=== PATIENT | male | born 1940 | race Caucasian/White ===

== ENCOUNTER → 2016-05-20 | Outpatient (CLI) | payer MEDICARE ==
[~2016-05-20] MED LIST: AUGM875T PO; CART240C PO; CITA40TA4 PO; COUM6TAB PO; FURO1TAB60 PO; METF500 PO; NOVOLOGP2 SQ; PERC5TAB12 PO; POTA-163 PO; SPIR25TA PO; TOPR50TA PO; VENTAER INH
[2016-05-20 12:57] LABS: AUTOMATED NEUTROPHIL # 3.9 TH/MM3 (1.8-7.7); BASOPHIL # 0.1 TH/MM3 (0-0.2); BASOPHIL % 0.9 % (0.0-2.0); EOSINOPHIL # 0.5 TH/MM3 (0-0.4); EOSINOPHIL % 6.7 % (0.0-4.0); HEMATOCRIT 35.5 % (39.0-51.0); HEMO FLAGS DIFF FINAL; LYMPH % 23.7 % (9.0-44.0); LYMPHOCYTE # 1.6 TH/MM3 (1.0-4.8); MEAN CELL VOLUME 87.5 FL (80.0-100.0); MEAN CORPUSCULAR HEMOGLOBIN 30.1 PG (27.0-34.0); MEAN CORPUSCULAR HGB CONC 34.4 % (32.0-36.0); MONO % 11.8 % (0.0-8.0); NEUT % 56.9 % (16.0-70.0); PLATELET COUNT 227 TH/MM3 (150-450); RED BLOOD COUNT 4.05 MIL/MM3 (4.50-5.90); RED CELL DISTRIBUTION WIDTH 15.4 % (11.6-17.2); WHITE BLOOD COUNT 6.8 TH/MM3 (4.0-11.0)
[2016-05-20 13:27] LABS: ANION GAP 10 MEQ/L (5-15); AST (GOT) 19 U/L (15-37); BICARBONATE 28.2 MEQ/L (21.0-32.0); BLOOD UREA NITROGEN 19 MG/DL (7-18); CHLORIDE 103 MEQ/L (98-107); GLOMERULAR FILTRATION RATE 78 ML/MIN (>89); POTASSIUM 3.8 MEQ/L (3.5-5.1); SODIUM (NA) 141 MEQ/L (136-145)
[2016-05-20 13:35] LABS: BLOOD, URINE NEG (NEG); GLUCOSE,URINE NEG (NEG); KETONE, URINE NEG (NEG); NITRITE,URINE NEG (NEG); PH, URINE 6.5 (5.0-8.5); SQUAMOUS EPITHELIAL CELL URINE <1 /hpf (0-5); URINE COLOR LIGHT-YELLOW (YELLW/STRAW)
[2016-05-20 13:48] LABS: ALKALINE PHOSPHATASE 92 U/L (45-117); ALT (GPT) 16 U/L (12-78); GLUCOSE,FASTING 131 MG/DL (74-99); HDL CHOLESTEROL 69.8 MG/DL (40.0-60.0); LDL CHOLESTEROL 134 MG/DL (0-99); TOTAL BILIRUBIN ADULT 0.4 MG/DL (0.2-1.0)
[2016-05-20 13:56] LABS: COMMENT (UR) CULT NOT INDICATED; CULTURE IF INDICATED CULT NOT INDICATED
[2016-05-20 16:04] LABS: HEMOGLOBIN A1a 1.3 %; HEMOGLOBIN Ao 83.4 %; HEMOGLOBIN LA1C 2.2 %; HEMOGLOBIN P3 4.1 %
== END ==
LOC: PLAB 09:21
PROVIDERS: ATTEND Internal Medicine
DX: E11.9 Type 2 diabetes mellitus without complications (principal); I10 Essential (primary) hypertension; Z12.5 Encounter for screening for malignant neoplasm of prostate
CPT/HCPCS: 36415; 80053; 80061; 81001; 83036; 84443; 85025; G0103

== ENCOUNTER → 2016-06-19 | Outpatient (CLI) | payer MEDICARE | LOC: PLAB 11:21 | DX: R19.7 Diarrhea, unspecified (principal) | CPT/HCPCS: 36415; 83516 ==

== ENCOUNTER → 2016-09-23 | Outpatient (CLI) | payer MEDICARE ==
[2016-09-23 13:31] LABS: ALT (GPT) 20 U/L (12-78); ANION GAP 7 MEQ/L (5-15); AST (GOT) 23 U/L (15-37); BICARBONATE 30.6 MEQ/L (21.0-32.0); BLOOD UREA NITROGEN 16 MG/DL (7-18); CHLORIDE 103 MEQ/L (98-107); GLOMERULAR FILTRATION RATE 80 ML/MIN (>89); GLUCOSE,FASTING 112 MG/DL (74-99); POTASSIUM 4.2 MEQ/L (3.5-5.1); SODIUM (NA) 141 MEQ/L (136-145)
[2016-09-23 13:33] LABS: ALKALINE PHOSPHATASE 73 U/L (45-117); HDL CHOLESTEROL 59.6 MG/DL (40.0-60.0); LDL CHOLESTEROL 115 MG/DL (0-99); TOTAL BILIRUBIN ADULT 0.5 MG/DL (0.2-1.0)
[2016-09-23 15:54] LABS: HEMOGLOBIN A1a 0.8 %; HEMOGLOBIN A1b 1.8 %; HEMOGLOBIN Ao 83.9 %; HEMOGLOBIN LA1C 2.1 %; HEMOGLOBIN P3 5.5 %
== END ==
LOC: PLAB 10:09
PROVIDERS: ATTEND Internal Medicine
DX: E11.9 Type 2 diabetes mellitus without complications (principal)
CPT/HCPCS: 36415; 80053; 80061; 83036

== ENCOUNTER 2017-01-07 20:26 | Emergency (ER) | payer MEDICARE ==
[~2017-01-07] VITALS: Ht 188 cm; Wt 128.4 kg
[2017-01-07 20:36] VITALS: BP 115/55; PULSE 84; RESP 18; TEMP 98.4; O2SAT 93
[2017-01-07] MEDS ORDERED: MODA100T9 PO (21:05)
[2017-01-07] MEDS ORDERED: OXYC-395 PO (21:05)
--- NOTE | 2017-01-07 21:12 | PD ---
HPI Chief Complaint: Musculoskeletal Complaint Time Seen by Provider: 21:05 Travel History International Travel<30 days: No Contact w/Intl Traveler<30days: No Traveled to known affect area: No History of Present Illness HPI 76-year-old male presents emergency department for evaluation of left foot pain since 12/19. Patient denies injury. Patient reports he was seen by pipeline welder who diagnosed him with arthritis and the metatarsals he was given a steroid injection which provided pain relief and symptom improvement for several days and return. He reports he's had a negative x-ray of the foot. The area has remained painful and swollen and now appears to be slightly warm. Patient denies swelling or pain in the leg. He denies fever, chills, numbness/tingling/ weakness of the extremity. PFSH Past Medical History Hx Anticoagulant Therapy: Yes AAA: Yes (AWAITING SURGICAL OPINION) Arthritis: Yes Asthma: No Atrial Fibrillation: Yes Autoimmune Disease: No Heart Rhythm Problems: Yes (PACER, a- fib) Cancer: Yes (SKIN, 30 years ago.) Cardiovascular Problems: Yes High Cholesterol: No Chemotherapy: No Chest Pain: Yes Congestive Heart Failure: Yes COPD: Yes Cerebrovascular Accident: No Coronary Artery Disease: Yes Diabetes: Yes Diminished Hearing: Yes Endocrine: No Gastrointestinal Disorders: Yes GERD: No Genitourinary: Yes (URINARY STRICTION YEARS AGO) Headaches: Yes Hiatal Hernia: Yes (YEARS AGO) Hypertension: Yes Immune Disorder: No Implanted Vascular Access Dvce: Yes Kidney Stones: No Musculoskeletal: Yes Neurologic: No Psychiatric: No Reproductive: No Respiratory: Yes (COPD) Immunizations Current: Yes Migraines: No Radiation Therapy: No Renal Failure: No Seizures: No Sleep Apnea: Yes Thyroid Disease: No Ulcer: No Tetanus Vaccination: < 5 Years Influenza Vaccination: Yes ?: Not Past Surgical History Abdominal Surgery: Yes Appendectomy: Yes Body Medical Devices: PACEMAKER Cardiac Surgery: Yes (PACEMAKER) Cholecystectomy: Yes Ear Surgery: No Endocrine Surgery: No 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) Genitourinary Surgery: No Gynecologic Surgery: No Oral Surgery: No Pacemaker: Yes Thoracic Surgery: Yes Tonsillectomy: Yes (SINUS AND UVULECTOMY) Other Surgery: Yes (RIGHT/LEFT TRIGGER FINGER) Social History Alcohol Use: Yes (occ.) Tobacco Use: No (quit approx 1989- smoked 2 ppd for 30+ yrs) Substance Use: No Allergies-Medications (Allergen,Severity, Reaction): Coded Allergies: No Known Allergies (Unverified , 01/07/17) Reported Meds & Prescriptions Reported Meds & Active Scripts Active Ultram (Tramadol HCl) 50 Mg Tab 50 Mg PO Q6H PRN Reported Oxycodone (Oxycodone HCl) 10 Mg Tab 10 Mg PO HS PRN Modafinil 100 Mg Tab 100 Mg PO DAILY Toprol XL (Metoprolol Succinate) 50 Mg Tab 50 Mg PO HS Spironolactone 25 Mg Tab 25 Mg PO DAILY Lasix (Furosemide) 40 Mg Tab 40 Mg PO DAILY Coumadin (Warfarin) 6 Mg Tab 6 Mg PO DAILY Citalopram (Citalopram Hydrobromide) 40 Mg Tab 40 Mg PO DAILY Ventolin Hfa 18 GM Inh (Albuterol Sulfate) 90 Mcg/Act Aer 2 Puff INH Q4-6H PRN Review of Systems Except as stated in HPI: all other systems reviewed are Neg General / Constitutional: No: Fever Eyes: No: Visual changes HENT: No: Headaches Cardiovascular: No: Chest Pain or Discomfort Respiratory: No: Shortness of Breath Gastrointestinal: No: Abdominal Pain Genitourinary: No: Dysuria Physical Exam Narrative GENERAL: Well-nourished, well-developed patient. SKIN: Focused skin assessment warm/dry. HEAD: Normocephalic. EYES: No scleral icterus. No injection or drainage. NECK: Supple, trachea midline. No JVD or lymphadenopathy. CARDIOVASCULAR: Regular rate and rhythm without murmurs, gallops, or rubs. RESPIRATORY: Breath sounds equal bilaterally. No accessory muscle use. MUSCULOSKELETAL: No cyanosis, or edema. Left lower extremity: TTP and mild swelling to the dorsal/medial aspect of the left foot. 2+ distal pulses. Normal sensation. Patient is tender to light palpation of the skin. The area is slightly warm. Negative Homans sign. No posterior knee or calf tenderness. Data Data Last Documented VS Vital Signs Date Time Temp Pulse Resp B/P (MAP) Pulse Ox O2 Delivery O2 Flow Rate FiO2 01/07/17 20:36 98.4 84 18 115/55 (75) 93 Orders Orders Ketorolac Inj (Toradol Inj) (01/07/17 21:15) MDM Medical Decision Making Medical Screen Exam Complete: Yes Emergency Medical Condition: Yes Differential Diagnosis Gout, arthritis, midfoot sprain, clinically unlikely DVT Narrative Course 68-year-old male presents emergency department for evaluation of left foot pain and swelling since 12/19. Patient was seen by podiatry who diagnosed him with arthritis within the metatarsals. He was given an injection of steroids with into the foot which he reports provided symptom improvement and relief for several days. He reports the symptoms returned. He had a negative x-ray. He denies fever or chills. On exam he has notable tenderness and mild swelling to the dorsal aspect and medial aspect of the left foot. The area does not appear to be cellulitic. The extremity is slightly warmer than the right. This does appear to be an arthritic possibly gouty arthritis. The patient is currently on Coumadin and has been instructed not to take NSAIDs. He was offered a short dose of steroids for which she declined stating he's had episodes of hyperglycemia with steroid use in the past. Patient has follow-up appointment on Thursday with podiatry. Patient will be given a shot of Toradol and instructed to follow-up with his PCP and podiatry. Diagnosis Primary Impression: Arthritis of foot, left Referrals: [facility] Additional Instructions: Ice and elevate the extremity. Take [id number] Tylenol extra strength as needed for pain. Keep your appointment with podiatry on Thursday. Return to emergency department if he developed new or worsening symptoms Scripts Tramadol (Ultram) 50 Mg Tab 50 MG PO Q6H Y for PAIN, #10 TAB 0 Refills Prov: Jh Lujan MD 01/07/17 Disposition: 01 DISCHARGE HOME Condition: Stable Desiree Retana Jan 07, 2017 21:12
[2017-01-07] MEDS ORDERED: KETOROLAC TROMETHAMINE 60 MG/2 ML (IM) VIAL IM ONE (21:15)
[2017-01-07] MEDS ORDERED: ULTR50TA5 PO ×2 (21:27→21:29)
== END 2017-01-07 21:46 | disposition home or self-care (01) ==
LOC: PHEFT 20:26
DX: M19.072 Primary osteoarthritis, left ankle and foot (principal); E11.9 Type 2 diabetes mellitus without complications; I11.0 Hypertensive heart disease with heart failure; I50.9 Heart failure, unspecified; I25.10 Atherosclerotic heart disease of native coronary artery without angina pectoris; I48.91 Unspecified atrial fibrillation; I71.4 Abdominal aortic aneurysm, without rupture; J44.9 Chronic obstructive pulmonary disease, unspecified; Z95.0 Presence of cardiac pacemaker
CPT/HCPCS: 96372; 99284; J1885

== ENCOUNTER → 2017-01-12 | Outpatient (CLI) | payer MEDICARE ==
[~2017-01-12] MED LIST changes: -AUGM875T PO; +CART120C PO; -CART240C PO; +LACTTAB8 PO; +LEVA500T20 PO; -METF500 PO; +MODA100T9 PO; -NOVOLOGP2 SQ; +OXYC-395 PO; +OXYGEN NAS.CANULA; -PERC5TAB12 PO; -POTA-163 PO; +PRED5PAK PO; +ULTR50TA5 PO; +WARF-23 PO; +WARF4TAB52 PO; +guaiFEN-COD 200-20 MG/10ML LIQ PO
== END ==
LOC: PLAB 11:25
PROVIDERS: ATTEND Podiatrist Foot & Ankle Surgery
DX: B35.1 Tinea unguium (principal); M25.572 Pain in left ankle and joints of left foot; Z79.01 Long term (current) use of anticoagulants
CPT/HCPCS: 36415; 84550

== ENCOUNTER → 2017-01-14 | Outpatient (CLI) | payer MEDICARE ==
[2017-01-14 13:10] LABS: AUTOMATED NEUTROPHIL # 4.2 TH/MM3 (1.8-7.7); BASOPHIL # 0.2 TH/MM3 (0-0.2); BASOPHIL % 2.8 % (0.0-2.0); EOSINOPHIL # 0.6 TH/MM3 (0-0.4); HEMO FLAGS DIFF FINAL; LYMPH % 23.4 % (9.0-44.0); LYMPHOCYTE # 1.8 TH/MM3 (1.0-4.8); MEAN CELL VOLUME 93.1 FL (80.0-100.0); MEAN CORPUSCULAR HEMOGLOBIN 30.9 PG (27.0-34.0); MEAN CORPUSCULAR HGB CONC 33.2 % (32.0-36.0); MONO % 10.2 % (0.0-8.0); NEUT % 55.6 % (16.0-70.0); PLATELET COUNT 211 TH/MM3 (150-450); RED BLOOD COUNT 4.08 MIL/MM3 (4.50-5.90); RED CELL DISTRIBUTION WIDTH 14.5 % (11.6-17.2); WHITE BLOOD COUNT 7.5 TH/MM3 (4.0-11.0)
[2017-01-14 13:20] LABS: ANION GAP 7 MEQ/L (5-15); BICARBONATE 28.9 MEQ/L (21.0-32.0); BLOOD UREA NITROGEN 23 MG/DL (7-18); CHLORIDE 104 MEQ/L (98-107); GLOMERULAR FILTRATION RATE 65 ML/MIN (>89); GLUCOSE,FASTING 124 MG/DL (74-99); POTASSIUM 4.1 MEQ/L (3.5-5.1); SODIUM (NA) 140 MEQ/L (136-145)
[2017-01-14 13:31] LABS: ALKALINE PHOSPHATASE 82 U/L (45-117); ALT (GPT) 19 U/L (12-78); AST (GOT) 17 U/L (15-37); HDL CHOLESTEROL 61.6 MG/DL (40.0-60.0); LDL CHOLESTEROL 97 MG/DL (0-99); TOTAL BILIRUBIN ADULT 0.3 MG/DL (0.2-1.0)
[2017-01-14 17:19] LABS: HEMOGLOBIN A1a 0.7 %; HEMOGLOBIN Ao 83.5 %; HEMOGLOBIN LA1C 2.2 %; HEMOGLOBIN P3 4.2 %
== END ==
LOC: PLAB 08:44
PROVIDERS: ATTEND Internal Medicine
DX: E11.9 Type 2 diabetes mellitus without complications (principal); I10 Essential (primary) hypertension; E78.00 Pure hypercholesterolemia, unspecified
CPT/HCPCS: 36415; 80053; 80061; 83036; 85025

== ENCOUNTER → 2017-02-05 | Outpatient (CLI) | payer MEDICARE | LOC: PLAB 12:24 | PROVIDERS: ATTEND Internal Medicine Interventional Cardiology | DX: R53.83 Other fatigue (principal); E66.01 Morbid (severe) obesity due to excess calories | CPT/HCPCS: 36415; 84443 ==

== ENCOUNTER 2017-02-08 14:14 | Inpatient (IN) | payer MEDICARE ==
[~2017-02-08] VITALS: Ht 185.4 cm; Wt 131.0 kg
[2017-02-08] VITALS (15 sets, daily range): BP systolic 104–167; BP diastolic 50–65; PULSE 66–88; RESP 19–36; TEMP 98.3–100.2; O2SAT 70–97
[~2017-02-08 14:14] MED LIST changes: -CART120C PO; -LACTTAB8 PO; -LEVA500T20 PO; -OXYGEN NAS.CANULA; -PRED5PAK PO; -WARF-23 PO; -WARF4TAB52 PO; -guaiFEN-COD 200-20 MG/10ML LIQ PO
[2017-02-08] MEDS ORDERED: methylPREDNISolone SOD SUCC 125 MG/2 ML VIAL IV PUSH ONE (14:30)
[2017-02-08] MEDS ORDERED: SODIUM CHLOR 0.9% 1000 ML INJ 1,000 ML IV ONE (14:30)
[2017-02-08] MEDS ORDERED: WARF-23 PO (14:40)
[2017-02-08] MEDS ORDERED: CART120C PO (14:40)
[2017-02-08] MEDS ORDERED: WARF4TAB52 PO (14:40)
[2017-02-08 14:46] LABS: AUTOMATED NEUTROPHIL # 9.1 TH/MM3 (1.8-7.7); BASOPHIL # 0.1 TH/MM3 (0-0.2); BASOPHIL % 0.5 % (0.0-2.0); EOSINOPHIL # 0.3 TH/MM3 (0-0.4); HEMATOCRIT 33.4 % (39.0-51.0); HEMO FLAGS DIFF FINAL; LYMPH % 11.6 % (9.0-44.0); LYMPHOCYTE # 1.5 TH/MM3 (1.0-4.8); MEAN CELL VOLUME 90.8 FL (80.0-100.0); MEAN CORPUSCULAR HEMOGLOBIN 30.2 PG (27.0-34.0); MEAN CORPUSCULAR HGB CONC 33.3 % (32.0-36.0); MONO % 13.6 % (0.0-8.0); NEUT % 72.3 % (16.0-70.0); PLATELET COUNT 200 TH/MM3 (150-450); RED BLOOD COUNT 3.68 MIL/MM3 (4.50-5.90); RED CELL DISTRIBUTION WIDTH 13.7 % (11.6-17.2); WHITE BLOOD COUNT 12.7 TH/MM3 (4.0-11.0)
[2017-02-08] MEDS: RESP: ALBUTEROL 2.5 MG/IPRATROPIUM 0.5 MG NEB (SCH) INH ×3 (14:46→21:37)
[2017-02-08 14:54] LABS: BLOOD GAS BASE EXCESS 0.8 mmol/L (-2-2); BLOOD GAS CARBOXYHEMOGLOBIN 3.2 % (0-4); BLOOD GAS HCO3 24 mmol/L (22-26); BLOOD GAS METHEMOGLOBIN 0.9 % (0-2); BLOOD GAS O2 HGB SATURATION 78 % (90-100); BLOOD GAS OXYGEN CONTENT 11.5 Vol % (12.0-20.0); BLOOD GAS PCO2 32 mmHG (38-42); BLOOD GAS PO2 45 mmHG (61-120); BLOOD GAS TOTAL HGB 10.4 G/DL (12.0-16.0); CRITICAL VALUE YES; DRAW SITE RT RADIAL; FIO2 21 %; TEMP CORR TO 98.6
[2017-02-08 14:55] LABS: NUMBER OF ARTERIAL PUNCTURES 1; OXYGEN DEVICE ROOM AIR; STAT YES; ULNAR PULSE PRESENT
--- NOTE | 2017-02-08 14:55 | PD ---
HPI Chief Complaint: Respiratory Distress Time Seen by Provider: 14:23 Travel History International Travel<30 days: No Contact w/Intl Traveler<30days: No Traveled to known affect area: No History of Present Illness HPI Patient is a 76-year-old male with history of CAD, AAA, A. fib, hypertension, cardiac pacemaker, CHF, COPD, sleep apnea, arthritis presents to emergency room with complaints of shortness of breath. Reports that he uses 4 L of oxygen nasal cannula at nighttime, reports that for the past 5-6 days, he has been feeling short of breath at rest as well as on exertion. Patient reports that he has been wheezing, has had a cough. Denies any fevers or chills. Patient reports that he can't seem to catch his breath. Denies any sick contacts at home. Reports that he does take coumadin as he has a pacemaker and does have history of atrial fibrillation. PFSH Past Medical History Hx Anticoagulant Therapy: Yes AAA: Yes (AWAITING SURGICAL OPINION) Arthritis: Yes Asthma: No Atrial Fibrillation: Yes Autoimmune Disease: No Heart Rhythm Problems: Yes (PACER, a- fib) Cancer: Yes (SKIN, 30 years ago.) Cardiovascular Problems: Yes High Cholesterol: No Chemotherapy: No Chest Pain: Yes Congestive Heart Failure: Yes COPD: Yes Cerebrovascular Accident: No Coronary Artery Disease: Yes Diabetes: Yes Patient Takes Glucophage: No Diminished Hearing: Yes Endocrine: No Gastrointestinal Disorders: Yes GERD: No Genitourinary: Yes (URINARY STRICTION YEARS AGO) Headaches: Yes Hiatal Hernia: Yes (YEARS AGO) Hypertension: Yes Immune Disorder: No Implanted Vascular Access Dvce: Yes Kidney Stones: No Musculoskeletal: Yes Neurologic: No Psychiatric: No Reproductive: No Respiratory: Yes (COPD) Immunizations Current: Yes Migraines: No Radiation Therapy: No Renal Failure: No Seizures: No Sleep Apnea: Yes Thyroid Disease: No Ulcer: No Tetanus Vaccination: < 5 Years Influenza Vaccination: Yes Past Surgical History Abdominal Surgery: Yes Appendectomy: Yes Body Medical Devices: PACEMAKER Cardiac Surgery: Yes (PACEMAKER) Cholecystectomy: Yes Ear Surgery: No Endocrine Surgery: No 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) Genitourinary Surgery: No Gynecologic Surgery: No Oral Surgery: No Pacemaker: Yes Thoracic Surgery: Yes Tonsillectomy: Yes (SINUS AND UVULECTOMY) Other Surgery: Yes (RIGHT/LEFT TRIGGER FINGER) Social History Alcohol Use: Yes (occ.) Tobacco Use: No (quit approx 1989- smoked 2 ppd for 30+ yrs) Substance Use: No Allergies-Medications (Allergen,Severity, Reaction): Coded Allergies: No Known Allergies (Unverified , 02/08/17) Reported Meds & Prescriptions Reported Meds & Active Scripts Active Reported Warfarin 5 Mg Tab 5 Mg PO DAILY Cartia Xt (Diltiazem ER 24 HR) 120 Mg Caper 240 Mg PO DAILY Warfarin 1 Mg Tab 1 Mg PO DAILY Oxycodone (Oxycodone HCl) 10 Mg Tab 10 Mg PO HS PRN Modafinil 100 Mg Tab 100 Mg PO DAILY Toprol XL (Metoprolol Succinate) 50 Mg Tab 50 Mg PO HS Spironolactone 25 Mg Tab 25 Mg PO DAILY Lasix (Furosemide) 40 Mg Tab 40 Mg PO DAILY Citalopram (Citalopram Hydrobromide) 40 Mg Tab 40 Mg PO DAILY Ventolin Hfa 18 GM Inh (Albuterol Sulfate) 90 Mcg/Act Aer 2 Puff INH Q4-6H PRN Review of Systems General / Constitutional: No: Fever Eyes: No: Visual changes HENT: No: Headaches Cardiovascular: No: Chest Pain or Discomfort Respiratory: Positive: Cough, Shortness of Breath, Wheezing Gastrointestinal: No: Abdominal Pain Genitourinary: No: Dysuria Musculoskeletal: No: Pain Skin: No Rash Neurologic: No: Weakness Psychiatric: No: Depression Endocrine: No: Polydipsia Hematologic/Lymphatic: No: Easy Bruising Physical Exam Narrative GENERAL: moderate distress SKIN: Focused skin assessment warm/dry. HEAD: Atraumatic. Normocephalic. EYES: Pupils equal and round. No scleral icterus. No injection or drainage. ENT: No nasal bleeding or discharge. Mucous membranes pink and moist. NECK: Trachea midline. No JVD. CARDIOVASCULAR: Regular rate and rhythm. No murmur appreciated. RESPIRATORY: Increased accessory muscle use. Scattered wheezing, tachypnea GASTROINTESTINAL: Abdomen soft, non-tender, nondistended. Hepatic and splenic margins not palpable. MUSCULOSKELETAL: No obvious deformities. No clubbing. No cyanosis. +2 edema b/ l. NEUROLOGICAL: Awake and alert. No obvious cranial nerve deficits. Motor grossly within normal limits. Normal speech. PSYCHIATRIC: Appropriate mood and affect; insight and judgment normal. Data Data Last Documented VS Vital Signs Date Time Temp Pulse Resp B/P (MAP) Pulse Ox O2 Delivery O2 Flow Rate FiO2 02/08/17 15:42 100.2 76 22 151/58 (89) 91 Nasal Cannula 6.00 02/08/17 14:45 21 Orders Orders Electrocardiogram (02/08/17 14:24) Complete Blood Count With Diff (02/08/17 14:24) Comprehensive Metabolic Panel (02/08/17 14:24) Prothrombin Time / Inr (Pt) (02/08/17 14:24) Act Partial Throm Time (Ptt) (02/08/17 14:24) Lactic Acid Sepsis Protocol (02/08/17 14:24) Magnesium (Mg) (02/08/17 14:24) Lipase (02/08/17 14:24) Ckmb (Isoenzyme) Profile (02/08/17 14:24) Troponin I (02/08/17 14:24) Urinalysis - C+S If Indicated (02/08/17 14:24) Influenzae A/B Antigen (02/08/17 14:24) Blood Culture (02/08/17 14:24) Chest, Single Ap (02/08/17 14:24) Blood Glucose (02/08/17 14:24) Ecg Monitoring (02/08/17 14:24) Iv Access Insert/Monitor (02/08/17 14:24) Oximetry (02/08/17 14:24) Oxygen Administration (02/08/17 14:24) Arterial Blood Gas (Abg) (02/08/17 ) Sodium Chlor 0.9% 1000 Ml Inj (Ns 1000 M (02/08/17 14:30) Methylprednisolone So Succ Inj (Solumedr (02/08/17 14:30) Albuterol-Ipratropium Neb (Duoneb Neb) (02/08/17 14:30) B-Type Natriuretic Peptide (02/08/17 15:26) Piperacil-Tazo 3.375 Gm Premix (Zosyn 3. (02/08/17 15:30) Vancomycin Inj (Vancomycin Inj) (02/08/17 15:30) Furosemide Inj (Lasix Inj) (02/08/17 15:45) Nitroglycerin 2% Oint (Nitroglycerin 2% (02/08/17 15:45) Labs Laboratory Tests Test 02/08/17 14:25 02/08/17 14:46 White Blood Count 12.7 TH/MM3 Red Blood Count 3.68 MIL/MM3 Hemoglobin 11.1 GM/DL Hematocrit 33.4 % Mean Corpuscular Volume 90.8 FL Mean Corpuscular Hemoglobin 30.2 PG Mean Corpuscular Hemoglobin Concent 33.3 % Red Cell Distribution Width 13.7 % Platelet Count 200 TH/MM3 Mean Platelet Volume 8.3 FL Neutrophils (%) (Auto) 72.3 % Lymphocytes (%) (Auto) 11.6 % Monocytes (%) (Auto) 13.6 % Eosinophils (%) (Auto) 2.0 % Basophils (%) (Auto) 0.5 % Neutrophils # (Auto) 9.1 TH/MM3 Lymphocytes # (Auto) 1.5 TH/MM3 Monocytes # (Auto) 1.7 TH/MM3 Eosinophils # (Auto) 0.3 TH/MM3 Basophils # (Auto) 0.1 TH/MM3 CBC Comment DIFF FINAL Differential Comment Prothrombin Time 28.8 SEC Prothromb Time International Ratio 2.5 RATIO Activated Partial Thromboplast Time 48.6 SEC Blood Urea Nitrogen 24 MG/DL Creatinine 1.00 MG/DL Random Glucose 122 MG/DL Total Protein 7.5 GM/DL Albumin 3.1 GM/DL Calcium Level 9.0 MG/DL Magnesium Level 1.7 MG/DL Alkaline Phosphatase 92 U/L Aspartate Amino Transf (AST/SGOT) 38 U/L Alanine Aminotransferase (ALT/SGPT) 30 U/L Total Bilirubin 1.1 MG/DL Sodium Level 136 MEQ/L Potassium Level 4.0 MEQ/L Chloride Level 101 MEQ/L Carbon Dioxide Level 25.8 MEQ/L Anion Gap 9 MEQ/L Estimat Glomerular Filtration Rate 72 ML/MIN Lactic Acid Level 3.1 mmol/L Total Creatine Kinase 76 U/L Troponin I LESS THAN 0.02 NG/ML Lipase 125 U/L Blood Gas Puncture Site RT RADIAL Blood Gas Patient Temperature 98.6 Blood Gas HCO3 24 mmol/L Blood Gas Base Excess 0.8 mmol/L Blood Gas Oxygen Saturation 78 % Arterial Blood pH 7.49 Arterial Blood Partial Pressure CO2 32 mmHG Arterial Blood Partial Pressure O2 45 mmHG Arterial Blood Oxygen Content 11.5 Vol % Arterial Blood Carboxyhemoglobin 3.2 % Arterial Blood Methemoglobin 0.9 % Blood Gas Hemoglobin 10.4 G/DL Oxygen Delivery Device ROOM AIR Blood Gas Inspired Oxygen 21 % MDM Medical Decision Making Medical Screen Exam Complete: Yes Emergency Medical Condition: Yes Medical Record Reviewed: Yes Interpretation(s) EKG at 1431:atrial paced at 69 bpm, qt/qtc: 403/423 Vital Signs Date Time Temp Pulse Resp B/P (MAP) Pulse Ox O2 Delivery O2 Flow Rate FiO2 02/08/17 14:37 (97) 02/08/17 14:36 93 Nasal Cannula 4.00 02/08/17 14:36 70 Room Air 02/08/17 14:27 93 Nasal Cannula 4.00 02/08/17 14:27 100.1 79 28 167/63 (97) 93 Nasal Cannula 4.00 Differential Diagnosis Differential includes CHF exacerbation, COPD exacerbation, ACS, arrhythmia, pneumonia, electrolyte abnormality, PE Narrative Course Patient is a 76-year-old male with c/o of sob and cough for the past 5-6 days. He was hypoxic with a pulse ox of 66% on room air, patient was placed in a room and oxygen was placed, he should currently with an oxygen saturation of 93% on 4 L nasal cannula. Patient with increased respiratory rate of 28, his temperature is 100.7. Patient was placed on a monitoring manager upon arrival to the emergency room. A sepsis workup was initiated. Patient is wheezing on exam, IV steroids as well as neb treatment ordered. ABG ordered to evaluate oxygenaton Vital Signs Date Time Temp Pulse Resp B/P (MAP) Pulse Ox O2 Delivery O2 Flow Rate FiO2 02/08/17 15:08 94 Nasal Cannula 6.00 02/08/17 14:48 93 Nasal Cannula 6.00 02/08/17 14:45 81 21 02/08/17 14:37 (97) 02/08/17 14:36 93 Nasal Cannula 4.00 02/08/17 14:36 70 Room Air 02/08/17 14:27 93 Nasal Cannula 4.00 02/08/17 14:27 100.1 79 28 167/63 (97) 93 Nasal Cannula 4.00 CBC & BMP Diagram 02/08/17 14:25 Total Protein 7.5, Albumin 3.1 L, Calcium Level 9.0, Magnesium Level 1.7, Alkaline Phosphatase 92, Aspartate Amino Transf (AST/SGOT) 38 H, Alanine Aminotransferase (ALT/SGPT) 30, Total Bilirubin 1.1 H Patient with wbc of 12.7, lactate of 3.1, with increased rr - patient has been pancultured, iv zosyn, azithrymycin as well as vanco ordered. X-ray of the chest shows streaky perihilar and bibasilar opacities of concern for pulmonary edema. Patient was given IV Lasix 80 mg. Nitropaste was placed. FC placed to measure I's and O's. Laboratory Tests Test 02/08/17 14:25 02/08/17 14:46 White Blood Count 12.7 TH/MM3 (4.0-11.0) Red Blood Count 3.68 MIL/MM3 (4.50-5.90) Hemoglobin 11.1 GM/DL (13.0-17.0) Hematocrit 33.4 % (39.0-51.0) Mean Corpuscular Volume 90.8 FL (80.0-100.0) Mean Corpuscular Hemoglobin 30.2 PG (27.0-34.0) Mean Corpuscular Hemoglobin Concent 33.3 % (32.0-36.0) Red Cell Distribution Width 13.7 % (11.6-17.2) Platelet Count 200 TH/MM3 (150-450) Mean Platelet Volume 8.3 FL (7.0-11.0) Neutrophils (%) (Auto) 72.3 % (16.0-70.0) Lymphocytes (%) (Auto) 11.6 % (9.0-44.0) Monocytes (%) (Auto) 13.6 % (0.0-8.0) Eosinophils (%) (Auto) 2.0 % (0.0-4.0) Basophils (%) (Auto) 0.5 % (0.0-2.0) Neutrophils # (Auto) 9.1 TH/MM3 (1.8-7.7) Lymphocytes # (Auto) 1.5 TH/MM3 (1.0-4.8) Monocytes # (Auto) 1.7 TH/MM3 (0-0.9) Eosinophils # (Auto) 0.3 TH/MM3 (0-0.4) Basophils # (Auto) 0.1 TH/MM3 (0-0.2) CBC Comment DIFF FINAL Differential Comment Prothrombin Time 28.8 SEC (9.8-11.6) Prothromb Time International Ratio 2.5 RATIO Activated Partial Thromboplast Time 48.6 SEC (24.3-30.1) Blood Urea Nitrogen 24 MG/DL (7-18) Creatinine 1.00 MG/DL (0.60-1.30) Random Glucose 122 MG/DL (74-106) Total Protein 7.5 GM/DL (6.4-8.2) Albumin 3.1 GM/DL (3.4-5.0) Calcium Level 9.0 MG/DL (8.5-10.1) Magnesium Level 1.7 MG/DL (1.5-2.5) Alkaline Phosphatase 92 U/L (45-117) Aspartate Amino Transf (AST/SGOT) 38 U/L (15-37) Alanine Aminotransferase (ALT/SGPT) 30 U/L (12-78) Total Bilirubin 1.1 MG/DL (0.2-1.0) Sodium Level 136 MEQ/L (136-145) Potassium Level 4.0 MEQ/L (3.5-5.1) Chloride Level 101 MEQ/L (98-107) Carbon Dioxide Level 25.8 MEQ/L (21.0-32.0) Anion Gap 9 MEQ/L (5-15) Estimat Glomerular Filtration Rate 72 ML/MIN (>89) Lactic Acid Level 3.1 mmol/L (0.4-2.0) Total Creatine Kinase 76 U/L (39-308) Troponin I LESS THAN 0.02 NG/ML Lipase 125 U/L (73-393) Blood Gas Puncture Site RT RADIAL Blood Gas Patient Temperature 98.6 Blood Gas HCO3 24 mmol/L (22-26) Blood Gas Base Excess 0.8 mmol/L (-2-2) Blood Gas Oxygen Saturation 78 % (90-100) Arterial Blood pH 7.49 (7.380-7.420) Arterial Blood Partial Pressure CO2 32 mmHG (38-42) Arterial Blood Partial Pressure O2 45 mmHG (61-120) Arterial Blood Oxygen Content 11.5 Vol % (12.0-20.0) Arterial Blood Carboxyhemoglobin 3.2 % (0-4) Arterial Blood Methemoglobin 0.9 % (0-2) Blood Gas Hemoglobin 10.4 G/DL (12.0-16.0) Oxygen Delivery Device ROOM AIR Blood Gas Inspired Oxygen 21 % Case reviewed with Dr. Gloria Noonan who accepts pt to service Critical Care Narrative Aggregate critical care time was 30 minutes. Time to perform other separately billable procedures was not included in the critical care time. My time did not include minutes spent treating any other patients simultaneously or on activities that did not directly contribute to the patient's treatment. The services I provided to this patient were to treat and/or prevent clinically significant deterioration that could result in: , decompensation, deterioration I provided critical care services requiring my management, as noted below: Chart data review, documentation time, medication orders and management, vital sign assessments/reviewing monitor data, ordering and reviewing lab tests, ordering and interpreting/reviewing x-rays and diagnostic studies, care of the patient and discussion of the patient with the admitting physicians. Diagnosis Primary Impression: Hypoxia Additional Impressions: Acute exacerbation of CHF (congestive heart failure) Qualified Codes: I50.9 - Heart failure, unspecified Pneumonia Qualified Codes: J18.9 - Pneumonia, unspecified organism Sepsis Qualified Codes: A41.9 - Sepsis, unspecified organism Admitting Information Admitting Physician Requests: Admit Lizzy Najera DO Feb 08, 2017 14:55
[2017-02-08 15:09] LABS: CHLORIDE 101 MEQ/L (98-107); SODIUM (NA) 136 MEQ/L (136-145)
[2017-02-08 15:13] LABS: ANION GAP 9 MEQ/L (5-15); BICARBONATE 25.8 MEQ/L (21.0-32.0); BLOOD UREA NITROGEN 24 MG/DL (7-18); MAGNESIUM 1.7 MG/DL (1.5-2.5)
[2017-02-08 15:15] LABS: APTT (PATIENT) 48.6 SEC (24.3-30.1); INTERNATIONAL NORMALIZED RATIO 2.5 RATIO; PROTHROMBIN TIME - PATIENT 28.8 SEC (9.8-11.6)
[2017-02-08 15:16] LABS: ALT (GPT) 30 U/L (12-78); AST (GOT) 38 U/L (15-37); GLOMERULAR FILTRATION RATE 72 ML/MIN (>89)
[2017-02-08 15:17] LABS: TOTAL BILIRUBIN ADULT 1.1 MG/DL (0.2-1.0)
[2017-02-08 15:18] LABS: ALKALINE PHOSPHATASE 92 U/L (45-117)
[2017-02-08 15:22] LABS: CREATINE KINASE 76 U/L (39-308)
[2017-02-08] MEDS ORDERED: VANCOMYCIN INJ 1,900 MG in SODIUM CHLORID 0.9% 500 ML INJ 500 ML IV ONE (15:30)
[2017-02-08] MEDS ORDERED: PIPERACIL-TAZO 3.375 GM PREMIX 50 ML IV ONE (15:30)
--- NOTE | 2017-02-08 15:35 | RADRPT ---
EXAM DATE/TIME: 02/08/2017 15:10 [facility] COMPARISON: CHEST SINGLE AP, April 10, 2016, 9:42. INDICATIONS : Short of breath MEDICAL HISTORY : Chronic obstructive pulmonary disease. Congestive heart failure. SURGICAL HISTORY : Pacemaker. ENCOUNTER: Initial ACUITY: 2 weeks PAIN SCORE: 0/10 LOCATION: Bilateral chest FINDINGS: 2 AP erect portable views of the chest were obtained and demonstrate new perihilar and bibasilar opac ities. Heart size appears mildly prominent. The right subclavian transvenous pacer remains in place. Overlying electrocardiogram leads. Atherosclerotic changes are present in the aorta. The bony thorax remains intact. CONCLUSION: 1. Streaky perihilar and bibasilar opacities of concern for pulmonary edema. The heart size appears mildly prominent and there is no visualized pulmonary effusion. Michael Mayo MD on February 08, 2017 at 15:32 Board Certified Radiologist. This report was verified electronically.
[2017-02-08] MEDS ORDERED: NITROGLYCERIN 2% OINT 1 GM PACKET TOPICAL ONE (15:45)
[2017-02-08] MEDS ORDERED: FUROSEMIDE 100 MG/10 ML VIAL IV PUSH ONE (15:45)
[2017-02-08] MEDS ORDERED: AZITHROMYCIN INJ 500 MG in SODIUM CHLOR 0.9% 250 ML INJ 250 ML IV ONE (16:00)
[2017-02-08 16:13] LABS: BLOOD, URINE SMALL (NEG); GLUCOSE,URINE NEG (NEG); KETONE, URINE NEG (NEG); NITRITE,URINE NEG (NEG)
[2017-02-08 16:18] LABS: METHOD OF COLLECTION CATH; URINE COLOR YELLOW (YELLW/STRAW)
[2017-02-08 16:23] LABS: COMMENT (UR) CATH-CULT NOT IND; COMMENT2 (UR) MUCOUS PRESENT; CULTURE IF INDICATED CATH CULTURE NOT IND; SQUAMOUS EPITHELIAL CELL URINE 0-5 /hpf (0-5); TRANSITIONAL EPI CELLS, URINE 0-5 /hpf
[2017-02-08 16:35] LABS: LACTIC ACID GHOST NOT REPORTABLE
[2017-02-08] MEDS ORDERED: CEFEPIME INJ 2,000 MG in SODIUM CHLORIDE 0.9% INJ 100 ML IV SCH (18:00)
[2017-02-08] MEDS ORDERED: Vancomycin Consult Pharmacy 1 EA OTHER SCH (18:15)
[2017-02-08] MEDS ORDERED: MAGNESIUM HYDROXIDE SUSP 30 ML CUP PO PRN (18:15)
[2017-02-08] MEDS ORDERED: SENNOSIDES 8.6 MG TAB PO PRN (18:15)
[2017-02-08] MEDS ORDERED: MAGNESIUM OXIDE 400 MG TAB PO PRN (18:15)
[2017-02-08] MEDS ORDERED: RESP: ALBUTEROL 2.5 MG/IPRATROPIUM 0.5 MG NEB (PRN) INH (18:15)
[2017-02-08] MEDS ORDERED: POTASSIUM CHLOR 40 MEQ PREMIX 100 ML IV PRN ×2 (18:15)
[2017-02-08] MEDS ORDERED: SODIUM CHLORIDE 0.9% FLUSH 10 ML FLUSH IV FLUSH PRN (18:15)
[2017-02-08] MEDS ORDERED: ONDANSETRON HCL 4 MG/2 ML VIAL IV PUSH PRN (18:15)
[2017-02-08] MEDS ORDERED: LACTULOSE SYRUP 20 GM/30 ML CUP PO PRN (18:15)
[2017-02-08] MEDS ORDERED: GLUCAGON 1 MG/ML VIAL OTHER PRN (18:15)
[2017-02-08] MEDS ORDERED: POTASSIUM CHLORIDE 25 MEQ EFFERVESCENT TAB PO PRN (18:15)
[2017-02-08] MEDS ORDERED: MAGNESIUM SULFATE INJ 4 GM in SODIUM CHLORIDE 0.9% INJ 92 ML IV PRN (18:15)
[2017-02-08] MEDS ORDERED: POTASSIUM PHOSPHATE INJ 30 MMOL in SODIUM CHLOR 0.9% 250 ML INJ 250 ML IV PRN (18:15)
[2017-02-08] MEDS ORDERED: POTASSIUM PHOSPHATE MONOBASIC 500 MG TAB PO/TUBE PRN (18:15)
[2017-02-08] MEDS ORDERED: MAGNESIUM SULFATE INJ 2 GM in SODIUM CHLORIDE 0.9% INJ 96 ML IV PRN (18:15)
[2017-02-08] MEDS ORDERED: MISCELLANEOUS NURSING INFORMATION XX SCH (18:15)
[2017-02-08] MEDS ORDERED: POTASSIUM CHLOR 20 MEQ PREMIX 100 ML IV PRN ×2 (18:15)
[2017-02-08] MEDS ORDERED: CHLORHEXIDINE GLUCONATE 2 % 1 PACK (2 CLOTHS) TOP PRN (18:15)
[2017-02-08] MEDS ORDERED: SODIUM PHOSPHATE INJ 30 MMOL in SODIUM CHLOR 0.9% 250 ML INJ 240 ML IV PRN (18:15)
[2017-02-08] MEDS ORDERED: POTASSIUM PHOSPHATE MONOBASIC 500 MG TAB PO PRN (18:15)
[2017-02-08] MEDS ORDERED: DEXTROSE 50% IN WATER 50 ML VIAL(D50) IV PUSH PRN (18:15)
[2017-02-08] MEDS ORDERED: BISACODYL 10 MG SUPP RECTAL PRN (18:15)
--- NOTE | 2017-02-08 18:44 | HHI.HP ---
[facility] Service Critical Care Medicine Primary Care Physician Giuseppe Velazquez MD Admission Diagnosis Hypoxia, CHF exacerbation, Sepsis Diagnosis: Travel History International Travel<30 Days: No Contact w/Intl Traveler <30 Da: No Traveled to Known Affected Are: No History of Present Illness This is a 76-year-old male with medical history significant for CAD, AAA, A. fib , hypertension, cardiac pacemaker, CHF, COPD, sleep apnea, arthritis presented to [facility] with complaints of shortness of breath. Reports that he uses 4 L of oxygen nasal cannula at nighttime, reports that for the past 5-6 days, he has been feeling short of breath at rest as well as on exertion. Patient reports that he has been wheezing, has had a cough. Denies any fevers or chills. Patient reports that he can't seem to catch his breath. Denies any sick contacts at home. Reports that he does take coumadin as he has a pacemaker and does have history of atrial fibrillation. ABGs were drawn revealed a PaO2 of 45. Critical care medicine was consulted. History PFSH Past Medical History Hx Anticoagulant Therapy: Yes AAA: Yes (AWAITING SURGICAL OPINION) Arthritis: Yes Asthma: No Atrial Fibrillation: Yes Autoimmune Disease: No Heart Rhythm Problems: Yes (PACER, a- fib) Cancer: Yes (SKIN, 30 years ago.) Cardiovascular Problems: Yes High Cholesterol: No Chemotherapy: No Chest Pain: Yes Congestive Heart Failure: Yes COPD: Yes Cerebrovascular Accident: No Coronary Artery Disease: Yes Diabetes: Yes Patient Takes Glucophage: No Diminished Hearing: Yes Endocrine: No Gastrointestinal Disorders: Yes GERD: No Genitourinary: Yes (URINARY STRICTION YEARS AGO) Headaches: Yes Hiatal Hernia: Yes (YEARS AGO) Hypertension: Yes Immune Disorder: No Implanted Vascular Access Dvce: Yes Kidney Stones: No Musculoskeletal: Yes Neurologic: No Psychiatric: No Reproductive: No Respiratory: Yes (COPD) Immunizations Current: Yes Migraines: No Radiation Therapy: No Renal Failure: No Seizures: No Sleep Apnea: Yes Thyroid Disease: No Ulcer: No Tetanus Vaccination: < 5 Years Influenza Vaccination: Yes Past Surgical History Abdominal Surgery: Yes Appendectomy: Yes Body Medical Devices: PACEMAKER Cardiac Surgery: Yes (PACEMAKER) Cholecystectomy: Yes Ear Surgery: No Endocrine Surgery: No 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) Genitourinary Surgery: No Gynecologic Surgery: No Oral Surgery: No Pacemaker: Yes Thoracic Surgery: Yes Tonsillectomy: Yes (SINUS AND UVULECTOMY) Other Surgery: Yes (RIGHT/LEFT TRIGGER FINGER) Social History Alcohol Use: Yes (occ.) Tobacco Use: No (quit approx 1989- smoked 2 ppd for 30+ yrs) Substance Use: No Allergies-Medications Allergies-Medications (Allergen,Severity, Reaction): Coded Allergies: No Known Allergies (Unverified , 02/08/17) Reported Meds & Prescriptions Reported Meds & Active Scripts Active Reported Warfarin 5 Mg Tab 5 Mg PO DAILY Cartia Xt (Diltiazem ER 24 HR) 120 Mg Caper 240 Mg PO DAILY Warfarin 1 Mg Tab 1 Mg PO DAILY Oxycodone (Oxycodone HCl) 10 Mg Tab 10 Mg PO HS PRN Modafinil 100 Mg Tab 100 Mg PO DAILY Toprol XL (Metoprolol Succinate) 50 Mg Tab 50 Mg PO HS Spironolactone 25 Mg Tab 25 Mg PO DAILY Lasix (Furosemide) 40 Mg Tab 40 Mg PO DAILY Citalopram (Citalopram Hydrobromide) 40 Mg Tab 40 Mg PO DAILY Ventolin Hfa 18 GM Inh (Albuterol Sulfate) 90 Mcg/Act Aer 2 Puff INH Q4-6H PRN ROS Review of Systems General / Constitutional: No: Fever Eyes: No: Visual changes HENT: No: Headaches Cardiovascular: No: Chest Pain or Discomfort Respiratory: Positive: Cough, Shortness of Breath, Wheezing Gastrointestinal: No: Abdominal Pain Genitourinary: No: Dysuria Musculoskeletal: No: Pain Skin: No Rash Neurologic: No: Weakness Psychiatric: No: Depression Endocrine: No: Polydipsia Hematologic/Lymphatic: No: Easy Bruising Past Family Social History Allergies: Coded Allergies: No Known Allergies (Unverified , 02/08/17) Family History Unable to obtain secondary to patient's dyspnea Physical Exam Vital Signs Vital Signs Date Time Temp Pulse Resp B/P (MAP) Pulse Ox O2 Delivery O2 Flow Rate FiO2 02/08/17 18:10 96 35 02/08/17 17:27 02/08/17 16:48 Nasal Cannula 6.00 21 02/08/17 16:48 71 22 154/65 (94) 92 Nasal Cannula 6.00 02/08/17 15:42 100.2 76 22 151/58 (89) 91 Nasal Cannula 6.00 02/08/17 15:08 94 Nasal Cannula 6.00 02/08/17 14:48 93 Nasal Cannula 6.00 02/08/17 14:45 81 21 02/08/17 14:37 (97) 02/08/17 14:36 93 Nasal Cannula 4.00 02/08/17 14:36 70 Room Air 02/08/17 14:27 93 Nasal Cannula 4.00 02/08/17 14:27 100.1 79 28 167/63 (97) 93 Nasal Cannula 4.00 Physical Exam GENERAL: Obese male sitting up in bed in mild respiratory distress on 4 L/m nasal cannula SKIN: Warm and dry. HEAD: Atraumatic. Normocephalic. EYES: Pupils equal and round. No scleral icterus. No injection or drainage. ENT: No nasal bleeding or discharge. Mucous membranes pink and moist. NECK: Trachea midline. No JVD. CARDIOVASCULAR: Normal rate, regular rhythm. RESPIRATORY: No accessory muscle use. Scattered rhonchi. Breath sounds equal bilaterally. GASTROINTESTINAL: Abdomen soft, protuberant non-tender, nondistended. No guarding. Normoactive bowel sounds MUSCULOSKELETAL: Extremities without clubbing, cyanosis, 1+ dependent pedal edema . No obvious deformities. NEUROLOGICAL: Awake and alert. RASS 0. No gross focal/sensory deficits. Follows commands in all 4 extremities. Laboratory Laboratory Tests Test 02/08/17 14:25 02/08/17 14:46 02/08/17 16:00 02/08/17 17:15 White Blood Count 12.7 Red Blood Count 3.68 Hemoglobin 11.1 Hematocrit 33.4 Mean Corpuscular Volume 90.8 Mean Corpuscular Hemoglobin 30.2 Mean Corpuscular Hemoglobin Concent 33.3 Red Cell Distribution Width 13.7 Platelet Count 200 Mean Platelet Volume 8.3 Neutrophils (%) (Auto) 72.3 Lymphocytes (%) (Auto) 11.6 Monocytes (%) (Auto) 13.6 Eosinophils (%) (Auto) 2.0 Basophils (%) (Auto) 0.5 Neutrophils # (Auto) 9.1 Lymphocytes # (Auto) 1.5 Monocytes # (Auto) 1.7 Eosinophils # (Auto) 0.3 Basophils # (Auto) 0.1 CBC Comment DIFF FINAL Differential Comment Prothrombin Time 28.8 Prothromb Time International Ratio 2.5 Activated Partial Thromboplast Time 48.6 Blood Urea Nitrogen 24 Creatinine 1.00 Random Glucose 122 Total Protein 7.5 Albumin 3.1 Calcium Level 9.0 Magnesium Level 1.7 Alkaline Phosphatase 92 Aspartate Amino Transf (AST/SGOT) 38 Alanine Aminotransferase (ALT/SGPT) 30 Total Bilirubin 1.1 Sodium Level 136 Potassium Level 4.0 Chloride Level 101 Carbon Dioxide Level 25.8 Anion Gap 9 Estimat Glomerular Filtration Rate 72 Lactic Acid Level 3.1 1.6 Total Creatine Kinase 76 Troponin I LESS THAN 0.02 B-Type Natriuretic Peptide 295 Lipase 125 Blood Gas Puncture Site RT RADIAL Blood Gas Patient Temperature 98.6 Blood Gas HCO3 24 Blood Gas Base Excess 0.8 Blood Gas Oxygen Saturation 78 Arterial Blood pH 7.49 Arterial Blood Partial Pressure CO2 32 Arterial Blood Partial Pressure O2 45 Arterial Blood Oxygen Content 11.5 Arterial Blood Carboxyhemoglobin 3.2 Arterial Blood Methemoglobin 0.9 Blood Gas Hemoglobin 10.4 Oxygen Delivery Device ROOM AIR Blood Gas Inspired Oxygen 21 Urine Collection Type CATH Urine Color YELLOW Urine Turbidity SLIGHT Urine pH 6.0 Urine Specific [place] 1.019 Urine Protein TRACE Urine Glucose (UA) NEG Urine Ketones NEG Urine Occult Blood SMALL Urine Nitrite NEG Urine Bilirubin NEG Urine Leukocyte Esterase NEG Urine RBC 4-9 Urine Squamous Epithelial Cells 0-5 Urine Transitional Epithelial Cells 0-5 Urine Amorphous Sediment FEW Microscopic Urinalysis Comment CATH-CULT NOT IND Urine Collection Time 1600 Date/Time Source Procedure Growth Status 02/08/17 14:30 Blood Peripheral Aerobic Blood Culture Pending Received 02/08/17 14:30 Blood Peripheral Anaerobic Blood Culture Pending Received 02/08/17 14:50 Nasal Aspirate Influenza Types A,B Antigen (CLARISSA) - Final NEGATIVE FOR FLU A AND B ANTIGEN.... Complete Result Diagram: 02/08/17 1425 02/08/17 1425 Imaging Last Impressions Chest X-Ray 02/08/171423 Signed Impressions: Service Date/Time: Wednesday, February 08, 2017 15:10 - CONCLUSION: 1. Streaky perihilar and bibasilar opacities of concern for pulmonary edema. The heart size appears mildly prominent and there is no visualized pulmonary effusion. Michael Mayo MD Septic Shock Reassessment Heart: Regular rate and rhythm Skin: Warm Peripheral Pulses: Bounding Right Radial Bounding Left Radial Capillary Refill: Brisk Caprini VTE Risk Assessment Caprini VTE Risk Assessment: Mod/High Risk (score >= 2) Caprini Risk Assessment Model Point Value = 1 Point Value = 2 Point Value = 3 Point Value = 5 Age 41-60 Minor surgery BMI > 25 kg/m2 Swollen legs Varicose veins or History of unexplained or recurrent spontaneous Oral contraceptives or hormone replacement Sepsis (< 1 month) Serious lung disease, including pneumonia (< 1 month) Abnormal pulmonary function Acute myocardial infarction Congestive heart failure (< 1 month) History of inflammatory bowel disease Medical patient at bed rest Age 61-74 Arthroscopic surgery Major open surgery (> 45 min) Laparoscopic surgery (> 45 min) Malignancy Confined to bed (> 72 hours) Immobilizing plaster cast Central venous access Age >= 75 History of VTE Family history of VTE Factor V Leiden Prothrombin [id number] Lupus anticoagulant Anticardiolipin antibodies Elevated serum homocysteine Heparin-induced thrombocytopenia Other congenital or acquired thrombophilia Stroke (< 1 month) Elective arthroplasty Hip, pelvis, or leg fracture Acute spinal cord injury (< 1 month) Prophylaxis Regimen Total Risk Factor Score Risk Level Prophylaxis Regimen 0-1 Low Early ambulation 2 Moderate Order ONE of the following: *Sequential Compression Device (SCD) *Heparin 5000 units SQ BID 3-4 Higher Order ONE of the following medications: *Heparin 5000 units SQ TID *Enoxaparin/Lovenox 40 mg SQ daily (WT < 150 kg, CrCl > 30 mL/min) *Enoxaparin/Lovenox 30 mg SQ daily (WT < 150 kg, CrCl > 10-29 mL/min) *Enoxaparin/Lovenox 30 mg SQ BID (WT < 150 kg, CrCl > 30 mL/min) AND/OR *Sequential Compression Device (SCD) 5 or more Highest Order ONE of the following medications: *Heparin 5000 units SQ TID (Preferred with Epidurals) *Enoxaparin/Lovenox 40 mg SQ daily (WT < 150 kg, CrCl > 30 mL/min) *Enoxaparin/Lovenox 30 mg SQ daily (WT < 150 kg, CrCl > 10-29 mL/min) *Enoxaparin/Lovenox 30 mg SQ BID (WT < 150 kg, CrCl > 30 mL/min) AND *Sequential Compression Device (SCD) Assessment and Plan Assessment and Plan Assessment This is a 76-year-old male with multiple comorbidities in the setting of COPD exacerbation and pneumonia, with mild to moderate respiratory distress. Patient has a significant shunt with PaO2 of 45. Patient has home O2 dependency at night utilizing BiPAP 4 L/m nasal cannula. The patient is at high risk for possible intubation secondary to respiratory compromise. Patient is critically ill and will be admitted to ICU. COPD exacerbation Hypoxemic respiratory failure Multilobar pneumonia Pulmonary edema IMANI History of A. fib History of CHF Pacemaker dependent Leukocytosis Lactic acidemia Plan Maintain O2 sat greater than 92% Patient received Lasix 80 mg IV in ED, diuresed 1200 cc, continue Lasix 40 mg by mouth daily, and spironolactone/daily In ED the patient received Zosyn, vancomycin, and erythromycin Will initiate cefepime, vancomycin, and Levaquin. The CBC count 12.0 continue to monitor CBC (Methylprednisolone 40 mg every [address] patient on BiPAP 14/9 FiO2 0.35, repeat ABG this evening These are the patient's home settings currently O2 sat 95-97 % Dr. Moses frank patient's qual research manager consulted Repeat chest x-ray in a.m. Schedule DuoNeb nebs every 6 hours INR 2.5, patient on Coumadin with history of atrial fibrillation will hold Coumadin tonight. Resume in a.m. EKG- 100% atrial paced. BNP 295 Continue patient's home medications Toprol-XL, diltiazem ER, Maintain patient nothing by mouth status for now, advanced to ice chips and clear liquid diet Gentle hydration- IVF NS 42cc/hr Bowel regimen This patient remains critically ill with one or more organ systems which are or may become a threat to life. I have spent in excess of 45 minutes discontinuously in the care and management of this patient. This time is exclusive of procedures, and includes, but is not limited to, evaluation of the patient, review of the medical record, discussions with family, consultants, nursing staff, or respiratory therapy, and documentation in the medical record. Code Status Full Discussed Condition With Patient, , Dr. Najera and SYSTEMS ARCHITECT at bedside Gloria Noonan MD Feb 08, 2017 18:44
[2017-02-08] MEDS: ACETAMINOPHEN 325 MG TAB PO PRN (19:41)
[2017-02-08] MEDS ORDERED: LEVOFLOXACIN 500 MG PREMIX INJ 100 ML IV SCH (20:00)
[2017-02-08 20:13] LABS: BLOOD GAS BASE EXCESS 1.4 mmol/L (-2-2); BLOOD GAS CARBOXYHEMOGLOBIN 2.3 % (0-4); BLOOD GAS HCO3 25 mmol/L (22-26); BLOOD GAS METHEMOGLOBIN 1.1 % (0-2); BLOOD GAS O2 HGB SATURATION 93 % (90-100); BLOOD GAS OXYGEN CONTENT 13.8 Vol % (12.0-20.0); BLOOD GAS PCO2 37 mmHg (38-42); BLOOD GAS PO2 81 mmHg (61-120); BLOOD GAS TOTAL HGB 10.4 G/DL (12.0-16.0)
[2017-02-08 20:14] LABS: CRITICAL VALUE NO; DRAW SITE RT RADIAL; LITER FLOW 4 L/M; NUMBER OF ARTERIAL PUNCTURES 1; OXYGEN DEVICE BIPAP; STAT NO; ULNAR PULSE PRESENT
[2017-02-08] MEDS: methylPREDNISolone SOD SUCC 40 MG/1 ML VIAL IV PUSH SCH (20:29)
[2017-02-08] MEDS: SODIUM CHLORIDE 0.9% FLUSH 10 ML FLUSH IV FLUSH SCH (20:29)
[2017-02-08] MEDS: LEVOFLOXACIN 500 MG PREMIX INJ 100 ML IV SCH (20:29)
[2017-02-08] MEDS: DOCUSATE SODIUM 50 MG/SENNA 8.6 MG TAB PO SCH (20:29)
[2017-02-08] MEDS: METOPROLOL SUCCINATE 50 MG EXTENDED RELEASE TAB PO SCH (20:29)
[2017-02-08] MEDS: INSULIN ASPART SUPPLEMENTAL SCALE SQ SCH (20:36)
[2017-02-09] VITALS (26 sets, daily range): BP systolic 107–140; BP diastolic 46–69; PULSE 68–92; RESP 14–41; TEMP 97.9–99.3; O2SAT 91–97
[2017-02-09] MEDS: CHLORHEXIDINE GLUCONATE 2 % 1 PACK (2 CLOTHS) TOP SCH (03:32)
[2017-02-09] MEDS: CEFEPIME INJ 2,000 MG in SODIUM CHLORIDE 0.9% INJ 100 ML IV SCH ×3 (03:32→19:42)
[2017-02-09] MEDS: RESP: ALBUTEROL 2.5 MG/IPRATROPIUM 0.5 MG NEB (SCH) INH ×4 (03:37→21:04)
[2017-02-09 05:06] LABS: AUTOMATED NEUTROPHIL # 6.1 TH/MM3 (1.8-7.7); BASOPHIL % 0.1 % (0.0-2.0); HEMATOCRIT 30.6 % (39.0-51.0); HEMO FLAGS DIFF FINAL; LYMPH % 9.5 % (9.0-44.0); LYMPHOCYTE # 0.7 TH/MM3 (1.0-4.8); MEAN CELL VOLUME 91.2 FL (80.0-100.0); MEAN CORPUSCULAR HEMOGLOBIN 30.9 PG (27.0-34.0); MEAN CORPUSCULAR HGB CONC 33.9 % (32.0-36.0); MONO % 2.6 % (0.0-8.0); NEUT % 87.8 % (16.0-70.0); PLATELET COUNT 155 TH/MM3 (150-450); POTASSIUM 3.9 MEQ/L (3.5-5.1); RED BLOOD COUNT 3.35 MIL/MM3 (4.50-5.90); RED CELL DISTRIBUTION WIDTH 13.8 % (11.6-17.2)
[2017-02-09 06:02] LABS: INTERNATIONAL NORMALIZED RATIO 2.5 RATIO; PROTHROMBIN TIME - PATIENT 29.3 SEC (9.8-11.6)
[2017-02-09] MEDS: VANCOMYCIN INJ 1,800 MG in SODIUM CHLORID 0.9% 500 ML INJ 500 ML IV SCH ×2 (06:13→18:19)
[2017-02-09 06:21] LABS: BICARBONATE 26.7 MEQ/L (21.0-32.0); MAGNESIUM 2.1 MG/DL (1.5-2.5)
--- NOTE | 2017-02-09 06:25 | RADRPT ---
EXAM DATE/TIME: 02/09/2017 06:01 [place] COMPARISON: CHEST SINGLE AP, February 08, 2017, 15:10. INDICATIONS : Shortness of breath. MEDICAL HISTORY : Chronic obstructive pulmonary disease. Congestive heart failure. SURGICAL HISTORY : Pacemaker. ENCOUNTER: Subsequent ACUITY: 2 days PAIN SCORE: Non-responsive. LOCATION: Bilateral chest FINDINGS: A single view of the chest demonstrates pacer leads overlying right atrium and right ventricle. Mild edema pattern is improved from February 08. Small effusions also improved. CONCLUSION: 1. Improved edema pattern and small effusions compared with February 08. No pneumothorax. Cardiomega ly. Aman Coughlin MD on February 09, 2017 at 6:22 Board Certified Radiologist. This report was verified electronically.
--- NOTE | 2017-02-09 06:59 | HHI.CCPN ---
Subjective Remarks/Hospital Course 02/08: This is a 76-year-old male with medical history significant for CAD, AAA, A. fib, hypertension, cardiac pacemaker, CHF, COPD, sleep apnea, arthritis presented to [facility] with complaints of shortness of breath. Reports that he uses 4 L of oxygen nasal cannula at nighttime, reports that for the past 5-6 days, he has been feeling short of breath at rest as well as on exertion. Patient reports that he has been wheezing, has had a cough. Denies any fevers or chills. Patient reports that he can't seem to catch his breath. Denies any sick contacts at home. Reports that he does take coumadin as he has a pacemaker and does have history of atrial fibrillation. ABGs were drawn revealed a PaO2 of 45. Critical care medicine was consulted. 02/09: Resting in bed comfortably. Breathing feels much improved about 80% palpation. Was on his home CPM machine at night. Wishes to eat. Objective Vital Signs Date Time Temp Pulse Resp B/P (MAP) Pulse Ox O2 Delivery O2 Flow Rate FiO2 02/09/17 06:00 92 36 111/ 93 02/09/17 04:00 98.1 02/08/17 21:37 Bipap 4.00 02/08/17 18:10 35 Intake and Output 02/09/17 02/09/17 02/09/17 07:59 15:59 23:59 Output Total 1750 ml Balance -1750 ml Result Diagram: 02/09/17 0424 02/09/17 0424 Other Results Microbiology Date/Time Source Procedure Growth Status 02/08/17 14:50 Nasal Aspirate Influenza Types A,B Antigen (CLARISSA) - Final NEGATIVE FOR FLU A AND B ANTIGEN.... Complete Laboratory Tests Test 02/08/17 14:46 02/08/17 20:02 Blood Gas Puncture Site RT RADIAL RT RADIAL Blood Gas Patient Temperature 98.6 37.0 Blood Gas HCO3 24 mmol/L (22-26) 25 mmol/L (22-26) Blood Gas Base Excess 0.8 mmol/L (-2-2) 1.4 mmol/L (-2-2) Blood Gas Oxygen Saturation 78 % (90-100) 93 % (90-100) Arterial Blood pH 7.49 (7.380-7.420) 7.45 (7.380-7.420) Arterial Blood Partial Pressure CO2 32 mmHG (38-42) 37 mmHg (38-42) Arterial Blood Partial Pressure O2 45 mmHG (61-120) 81 mmHg (61-120) Arterial Blood Oxygen Content 11.5 Vol % (12.0-20.0) 13.8 Vol % (12.0-20.0) Arterial Blood Carboxyhemoglobin 3.2 % (0-4) 2.3 % (0-4) Arterial Blood Methemoglobin 0.9 % (0-2) 1.1 % (0-2) Blood Gas Hemoglobin 10.4 G/DL (12.0-16.0) 10.4 G/DL (12.0-16.0) Oxygen Delivery Device ROOM AIR BIPAP Blood Gas Inspired Oxygen 21 % Blood Gas Liter Flow 4 L/M Imaging Last Impressions Chest X-Ray 02/09/17 0600 Signed Impressions: Service Date/Time: Thursday, February 09, 2017 06:01 - CONCLUSION: 1. Improved edema pattern and small effusions compared with February 08. No pneumothorax. Cardiomegaly. Aman Coughlin MD Last Impressions Chest X-Ray 02/08/17 1424 Signed Impressions: Service Date/Time: Wednesday, February 08, 2017 15:10 - CONCLUSION: 1. Streaky perihilar and bibasilar opacities of concern for pulmonary edema. The heart size appears mildly prominent and there is no visualized pulmonary effusion. Michael Mayo MD Objective Remarks GENERAL: Obese male laying in bed on 4 L/m nasal cannula SKIN: Warm and dry. HEAD: Atraumatic. Normocephalic. EYES: Pupils equal and round. No scleral icterus. No injection or drainage. ENT: No nasal bleeding or discharge. Mucous membranes pink and moist. NECK: Trachea midline. No JVD. CARDIOVASCULAR: Normal rate, regular rhythm. RESPIRATORY: No accessory muscle use. Scattered rhonchi. Breath sounds equal bilaterally. GASTROINTESTINAL: Abdomen soft, protuberant non-tender, nondistended. No guarding. Normoactive bowel sounds MUSCULOSKELETAL: Extremities without clubbing, cyanosis, 1+ dependent pedal edema . No obvious deformities. NEUROLOGICAL: Awake and alert. RASS 0. No gross focal/sensory deficits. Follows commands in all 4 extremities. A/P Assessment and Plan Assessment This is a 76-year-old male with multiple comorbidities in the setting of COPD exacerbation and pneumonia, with mild to moderate respiratory distress. Patient has a significant shunt with PaO2 of 45. Patient has home O2 dependency at night utilizing BiPAP 4 L/m nasal cannula. The patient is at high risk for possible intubation secondary to respiratory compromise. Patient is critically ill and will be admitted to ICU. COPD exacerbation Hypoxemic respiratory failure Multilobar pneumonia Pulmonary edema IMANI History of A. fib History of CHF Pacemaker dependent Leukocytosis Lactic acidemia Plan Maintain O2 sat greater than 92% Patient received Lasix 80 mg IV in ED, diuresed 1200 cc, continue Lasix 40 mg by mouth daily, and spironolactone/daily In ED the patient received Zosyn, vancomycin, and erythromycin Continue cefepime, vancomycin, and Levaquin. Continue to monitor CBC Methylprednisolone 40 mg every 12 hours On BiPAP overnight 29/01 FiO2 0.35(These are the patient's home settings), placed on 4L O2 NC on 02/09 currently O2 sat 95% Dr. Moses frank patient's manufacturing worker consulted Schedule DuoNeb nebs every 6 hours INR 2.5, patient on Coumadin with history of atrial fibrillation , continue coumadin. EKG- 100% atrial paced. BNP 295 Continue patient's home medications Toprol-XL, diltiazem ER, Advance to heart healthy diet. Gentle hydration- IVF NS 42cc/hr Bowel regimen Consult and transfer to hospitalist service for further medical management. Critical care will be signing off. Further recommendations per Dr. Moses frank. Sean Ma MD Feb 09, 2017 06:59
[2017-02-09] MEDS: INSULIN ASPART SUPPLEMENTAL SCALE SQ SCH ×4 (08:00→19:46)
[2017-02-09] MEDS: methylPREDNISolone SOD SUCC 40 MG/1 ML VIAL IV PUSH SCH ×2 (08:18→19:41)
[2017-02-09] MEDS: SPIRONOLACTONE 25 MG TAB PO SCH (08:18)
[2017-02-09] MEDS: DOCUSATE SODIUM 50 MG/SENNA 8.6 MG TAB PO SCH ×2 (08:18→19:41)
[2017-02-09] MEDS: FUROSEMIDE 40 MG TAB PO SCH (08:18)
[2017-02-09] MEDS: PANTOPRAZOLE SODIUM 40 MG VIAL IV PUSH SCH (08:18)
[2017-02-09] MEDS: DILTIAZEM-CD 240 MG CAP ER PO SCH (08:19)
[2017-02-09] MEDS: SODIUM CHLORIDE 0.9% FLUSH 10 ML FLUSH IV FLUSH SCH ×2 (08:19→19:42)
--- NOTE | 2017-02-09 13:57 | EKG ---
Date Performed: 02/08/2017 Time Performed: 14:31:50 PTAGE: 76 years EKG: ELECTRONIC ATRIAL PACEMAKER ABNORMAL RHYTHM ECG Compared to prior tracing no significant ch ethan PREVIOUS TRACING : 04/08/2016 02.53 DOCTOR: Prashanth Green Interpretating Date/Time 02/09/2017 13:55:48
[2017-02-09] MEDS: METOPROLOL SUCCINATE 50 MG EXTENDED RELEASE TAB PO SCH (19:40)
[2017-02-09] MEDS: LEVOFLOXACIN 500 MG PREMIX INJ 100 ML IV SCH (19:42)
[2017-02-10] VITALS (26 sets, daily range): BP systolic 101–157; BP diastolic 47–78; PULSE 68–80; RESP 0–30; TEMP 97.6–98.1; O2SAT 86–96
[2017-02-10] MEDS: CHLORHEXIDINE GLUCONATE 2 % 1 PACK (2 CLOTHS) TOP SCH (04:00)
[2017-02-10] MEDS: RESP: ALBUTEROL 2.5 MG/IPRATROPIUM 0.5 MG NEB (SCH) INH ×3 (04:06→19:14)
[2017-02-10] MEDS: CEFEPIME INJ 2,000 MG in SODIUM CHLORIDE 0.9% INJ 100 ML IV SCH ×3 (04:38→19:52)
[2017-02-10] MEDS: VANCOMYCIN INJ 1,800 MG in SODIUM CHLORID 0.9% 500 ML INJ 500 ML IV SCH ×2 (05:10→17:50)
[2017-02-10] MEDS ORDERED: PHARMACY ORDERED LAB ONE (05:45)
[2017-02-10] MEDS: INSULIN ASPART SUPPLEMENTAL SCALE SQ SCH ×4 (08:00→19:59)
[2017-02-10] MEDS: PANTOPRAZOLE SODIUM 40 MG VIAL IV PUSH SCH (09:00)
[2017-02-10] MEDS ORDERED: methylPREDNISolone SOD SUCC 40 MG/1 ML VIAL IV PUSH SCH (09:00)
[2017-02-10] MEDS: SODIUM CHLORIDE 0.9% FLUSH 10 ML FLUSH IV FLUSH SCH ×2 (09:00→19:52)
[2017-02-10] MEDS: DOCUSATE SODIUM 50 MG/SENNA 8.6 MG TAB PO SCH ×2 (09:19→19:51)
[2017-02-10] MEDS: FUROSEMIDE 40 MG TAB PO SCH (09:19)
[2017-02-10] MEDS: DILTIAZEM-CD 240 MG CAP ER PO SCH (09:19)
[2017-02-10] MEDS: SPIRONOLACTONE 25 MG TAB PO SCH (09:19)
--- NOTE | 2017-02-10 10:24 | MB ---
cc: Reina CURRY DATE OF CONSULTATION 02/10/2017 HISTORY Mr. Pittman is a 76-year-old white male known to me for several years with mild to moderate obstructive lung disease. He is a former smoker of about 60 pack-years having quit 10 years ago. He also has significant underlying heart disease with chronic atrial fibrillation, diastolic heart failure, and a history of mild pulmonary hypertension due to his other comorbidities. He is also obese and has a pacemaker. I last saw him in the office in November at which time he was stable. Prior to this admission, he had been developing gradual increasing shortness of breath, as well as lower extremity edema. He traveled to [place] last week to be with family, but became more short of breath down there. He did not want to go to the hospital there, so his rushed him back here and essentially came directly to the hospital here at [place]. On presentation, his pO2 was 45 on room air and his chest x-ray revealed bibasilar infiltrates of concern for pulmonary edema and also possible pneumonia. The patient was admitted by the critical care team and diuresed over two liters initially and felt much better. He is using his C-PAP from home at night for his IMANI. At the time I saw him yesterday, he was awake, alert, much more comfortable breathing better. He had been treated with IV antibiotics as well as aerosolized bronchodilators and diuretics. A consult was placed to his racing secretary, Dr. Orona. PAST MEDICAL HISTORY Other than that noted above he has: 1. AAA 2. He has a history of a right upper extremity DVT. 3. He is on chronic Coumadin for his underlying arrhythmia. 4. No prior history of malignancy. 5. He is diabetic. 6. He has had a previous appendectomy and cholecystectomy. SOCIAL HISTORY living with his . Smoking 60 pack-years although he quit smoking a decade ago. Drinks alcohol on occasion but not to excess. ALLERGIES None MEDICATIONS Reviewed in the EMR. REVIEW OF SYSTEMS He has had no chest pain. No hemoptysis. There was no upper respiratory symptoms leading up to this. It was just gradual onset of dyspnea with increasing edema. No abdominal discomfort or diarrhea. He was not aware of any fever. PHYSICAL EXAMINATION An obese white male very comfortable at rest on nasal oxygen. HEAD, EYES, EARS, NOSE, AND THROAT: Sclerae anicteric. Pharynx is clear. NECK: Neck veins are flat. CHEST: Minimal basilar rales, but no congestion. No audible wheezing. ABDOMEN: Obese but soft. EXTREMITIES: He has no pitting edema in the legs. No calf tenderness. LABORATORY White count 12,000 on admission, 7000 on followup. Arterial blood gases on presentation pO2 was 45 with a pH 7.49, pCO2 of 32. On BiPAP, his pO2 randell to 81. His INR was 2.5 on presentation. His chest x-ray as noted above. DISCUSSION presented with what I think is probably mild CHF. We cannot exclude infection and in fact 1/2 blood cultures is growing a gram-negative jose not yet not yet identified. He is on broad-spectrum antibiotics. We will continue those for now. I will continue his aerosolized bronchodilators and diuretics. Dr. Orona has been asked to see him in consultation. The patient is clearly improved with diuresis. Further diagnostic and/or therapeutic intervention will depend on his ongoing clinical response. R. MD LEILANI Samson/BRANDAN /9:56 AM /10:07 AM
--- NOTE | 2017-02-10 11:47 | HHI.PR ---
Subjective Remarks Patient ambulated 250 feet with physical therapy this morning. He is on nasal cannula 3 L. He states he feels much better than when admitted. He still is dyspneic with exertion. Patient complains of a dry cough. Denies fever or chills. Objective Vitals Vital Signs Date Time Temp Pulse Resp B/P (MAP) Pulse Ox O2 Delivery O2 Flow Rate FiO2 02/10/17 11:00 70 02/10/17 11:00 70 25 135/62 (86) 93 02/10/17 10:45 68 02/10/17 10:00 68 02/10/17 10:00 68 19 137/66 (89) 89 02/10/17 09:00 70 26 128/63 (84) 86 02/10/17 08:00 70 02/10/17 08:00 97.6 02/10/17 08:00 68 12 136/77 (96) 92 02/10/17 07:00 68 02/10/17 07:00 98.1 68 13 144/73 (96) 96 02/10/17 07:00 68 13 144/73 (96) 96 02/10/17 06:00 72 11 146/75 (98) 94 02/10/17 06:00 72 02/10/17 06:00 72 11 146/75 (98) 94 02/10/17 05:00 70 16 142/70 (94) 91 02/10/17 05:00 70 16 142/70 (94) 91 02/10/17 04:00 70 16 157/78 (104) 92 02/10/17 04:00 98.0 70 16 157/78 (104) 92 02/10/17 04:00 70 02/10/17 03:00 68 12 141/70 (93) 90 02/10/17 03:00 68 12 141/70 (93) 90 02/10/17 02:00 68 13 138/75 (96) 93 02/10/17 02:00 68 13 138/75 (96) 93 02/10/17 02:00 68 02/10/17 01:00 68 12 133/69 (90) 88 02/10/17 01:00 68 12 133/69 (90) 88 02/10/17 00:00 68 25 137/66 (89) 87 02/10/17 00:00 68 25 137/66 (89) 87 02/10/17 00:00 68 02/10/17 00:00 68 02/09/17 23:00 70 33 125/61 (82) 92 02/09/17 22:00 76 02/09/17 22:00 76 02/09/17 22:00 76 18 121/55 (77) 93 02/09/17 21:05 94 Nasal Cannula 3.00 02/09/17 21:00 82 32 140/62 (88) 93 02/09/17 20:00 68 02/09/17 20:00 68 02/09/17 20:00 97.9 68 19 136/64 (88) 93 02/09/17 19:00 68 20 107/55 (72) 91 02/09/17 18:00 86 02/09/17 18:00 86 41 137/63 (87) 02/09/17 17:00 68 21 119/52 (74) 92 02/09/17 17:00 68 02/09/17 16:00 72 02/09/17 16:00 98.2 72 32 118/54 (75) 93 02/09/17 16:00 72 02/09/17 15:00 70 02/09/17 15:00 70 28 107/51 (69) 93 02/09/17 15:00 70 02/09/17 14:00 80 02/09/17 14:00 80 02/09/17 14:00 80 28 110/57 (74) 91 02/09/17 13:00 74 02/09/17 13:00 74 02/09/17 13:00 74 25 127/64 (85) 95 02/09/17 12:39 18 02/09/17 12:00 72 02/09/17 12:00 72 02/09/17 12:00 98.1 72 26 116/52 (73) 95 02/09/17 11:58 74 22 114/55 (74) 96 I/O 02/09/17 02/09/17 02/09/17 02/10/17 02/10/17 02/10/17 07:00 15:00 23:00 07:00 15:00 23:00 Intake Total 800 ml 475 ml Output Total 1750 ml 650 ml 775 ml Balance -1750 ml 150 ml -300 ml IV Total 800 ml 475 ml Output Urine Total 1750 ml 650 ml 775 ml # Bowel Movements 0 Result Diagram: 02/09/1742302/09/17423 Objective Remarks GENERAL: Well-nourished, well-developed obese CM patient. SKIN: Warm and dry. HEAD: Normocephalic. EYES: No scleral icterus. No injection or drainage. NECK: Supple, trachea midline. No JVD or lymphadenopathy. CARDIOVASCULAR: irregular rate and rhythm without murmurs, gallops, or rubs. RESPIRATORY: Breath sounds equal but coarse bilaterally. No accessory muscle use. GASTROINTESTINAL: Abdomen soft, non-tender, nondistended. EXTREMITIES: trace pedal edema. NEUROLOGICAL: Awake, alert, and oriented x 3. Non-focal. A/P Assessment and Plan 76-year-old male -Acute Hypoxemic respiratory failure due to COPD exacerbation, CHF exacerbation , possible PNA - improved, s/p BIPAP -Continue vancomycin, cefepime, levaquin. -Continue lasix 40 mg PO daily. -solumedrol IV per pulm -duonebs -CPAP at night, O2 NC at day -Pulmonology following, cardiology consulted -GNR bacteremia/sepsis - UA was clear, unclear source. cont cefepime, consult ID. -IMANI-cont cpap - A. fib, Pacemaker dependent-cont Toprol-XL, diltiazem ER, coumadin. -Chronic resp failure - on 4 Liters NC at home. -DVT px - coumadin Camilla Coronado MD Feb 10, 2017 11:47
--- NOTE | 2017-02-10 18:46 | PD.CONS ---
History of Present Illness Service Infectious disease Consult Requested By Dr Letty Spence Reason for Consult Bacteremia Primary Care Physician Giuseppe Velazquez MD Diagnoses: (1) Septicemia, Gram-negative (2) Acute exacerbation of CHF (congestive heart failure) (3) Pneumonia History of Present Illness 76 ? M came in with worsening shortness of breath, cough and some swelling around ankles- found to be in acute CHF. ON admission he had leucocytosis as well as low grade fevers and so blood cultures were drawn which now have 1 of 4 GNR and so the consult. No nausea, vomiting or abdominal pain. Some sputum production. No urinary symptoms. No recent wounds. Review of Systems Constitutional: COMPLAINS OF: Fever, DENIES: Chills, Change in appetite Endocrine: DENIES: Polydipsia, Polyuria Eyes: DENIES: Diplopia, Photosensitivity Ears, nose, mouth, throat: DENIES: Nasal discharge, Oral lesions, Ear Pain Respiratory: COMPLAINS OF: Cough, Sputum production, Shortness of breath Cardiovascular: COMPLAINS OF: Lower Extremity Edema, DENIES: Chest pain, Palpitations Gastrointestinal: COMPLAINS OF: Diarrhea ( alterantes with constipation), DENIES: Abdominal pain, Black stools Genitourinary: DENIES: Urinary frequency, Dysuria Musculoskeletal: DENIES: Muscle aches, Back pain Integumentary: DENIES: Abnormal pigmentation Hematologic/lymphatic: DENIES: Bruising, Lymphadenopathy Neurologic: DENIES: Abnormal gait, Localized weakness Psychiatric: DENIES: Confusion, Depression Past Family Social History Allergies: Coded Allergies: No Known Allergies (Unverified , 02/08/17) Past Medical History CHF CAD DM AAA- awaiting surgical opinion S/p Pacemaker] Arthritis Skin cancers Past Surgical History Appendectomy Cholecystectomy Pacemaker Trigger finger Skin cancer removal Active Ordered Medications Vancomycin, Cefepime and Levofloxacin Family History Non contributory . No sick contact recently Social History Former smoker H/o extensive travel to 98 countries- none recent. Retired No pets Lives with his Physical Exam Vital Signs Vital Signs Date Time Temp Pulse Resp B/P (MAP) Pulse Ox O2 Delivery O2 Flow Rate FiO2 02/10/17 18:00 72 02/10/17 18:00 72 23 127/68 (87) 93 02/10/17 18:00 72 02/10/17 17:00 80 02/10/17 17:00 80 02/10/17 17:00 80 28 116/59 (78) 92 02/10/17 16:00 72 02/10/17 16:00 72 02/10/17 16:00 72 29 113/58 (76) 91 02/10/17 15:00 68 16 101/47 (65) 92 02/10/17 15:00 68 02/10/17 15:00 68 02/10/17 14:00 78 30 125/56 (79) 91 02/10/17 14:00 78 02/10/17 13:33 96 Nasal Cannula 3.00 02/10/17 12:00 68 19 137/66 (89) 94 02/10/17 12:00 68 02/10/17 11:00 70 02/10/17 11:00 70 25 135/62 (86) 93 02/10/17 10:45 68 02/10/17 10:00 68 02/10/17 10:00 68 19 137/66 (89) 89 02/10/17 09:00 70 26 128/63 (84) 86 02/10/17 08:00 70 02/10/17 08:00 97.6 02/10/17 08:00 68 12 136/77 (96) 92 02/10/17 07:00 68 02/10/17 07:00 98.1 68 13 144/73 (96) 96 02/10/17 07:00 68 13 144/73 (96) 96 02/10/17 06:00 72 11 146/75 (98) 94 02/10/17 06:00 72 02/10/17 06:00 72 11 146/75 (98) 94 02/10/17 05:00 70 16 142/70 (94) 91 02/10/17 05:00 70 16 142/70 (94) 91 02/10/17 04:00 70 16 157/78 (104) 92 02/10/17 04:00 98.0 70 16 157/78 (104) 92 02/10/17 04:00 70 02/10/17 03:00 68 12 141/70 (93) 90 02/10/17 03:00 68 12 141/70 (93) 90 02/10/17 02:00 68 13 138/75 (96) 93 02/10/17 02:00 68 13 138/75 (96) 93 02/10/17 02:00 68 02/10/17 01:00 68 12 133/69 (90) 88 02/10/17 01:00 68 12 133/69 (90) 88 02/10/17 00:00 68 25 137/66 (89) 87 02/10/17 00:00 68 25 137/66 (89) 87 02/10/17 00:00 68 02/10/17 00:00 68 02/09/17 23:00 70 33 125/61 (82) 92 02/09/17 22:00 76 02/09/17 22:00 76 02/09/17 22:00 76 18 121/55 (77) 93 02/09/17 21:05 94 Nasal Cannula 3.00 02/09/17 21:00 82 32 140/62 (88) 93 02/09/17 20:00 68 02/09/17 20:00 68 02/09/17 20:00 97.9 68 19 136/64 (88) 93 02/09/17 19:00 68 20 107/55 (72) 91 Physical Exam GENERAL: This is a obese chronically ill patient SKIN: No rashes, ecchymoses or lesions. Cool and dry. HEAD: Atraumatic. Normocephalic. No temporal or scalp tenderness. Scar near left eye with spme swelling EYES: Pupils equal round and reactive. Extraocular motions intact. No scleral icterus. No injection or drainage. ENT: Nose without bleeding, purulent drainage or septal hematoma. Throat without erythema, tonsillar hypertrophy or exudate. Uvula midline. Airway patent. NECK: Trachea midline. No JVD or lymphadenopathy. Supple, nontender, no meningeal signs. CARDIOVASCULAR: Regular rate and rhythm with systolic murmurs, gallops, or rubs. RESPIRATORY: Clear to auscultation. Breath sounds equal bilaterally decreased with some wheezes, rales, or rhonchi. GASTROINTESTINAL: Abdomen soft, non-tender, nondistended. No hepato-splenomegaly , or palpable masses. No guarding. MUSCULOSKELETAL: Extremities without clubbing, cyanosis, or edema. No joint tenderness, effusion, or edema noted. No calf tenderness. Negative Homans sign bilaterally. Foot drop NEUROLOGICAL: Awake and alert. Cranial nerves II through XII intact. Motor and sensory grossly within normal limits. Five out of 5 muscle strength in all muscle groups. Normal speech. Laboratory Laboratory Tests Test 02/10/17 04:27 Vancomycin Level Trough 17.4 Date/Time Source Procedure Growth Status 02/08/17 14:30 Blood Peripheral Aerobic Blood Culture - Preliminary NO GROWTH IN 2 DAYS Resulted 02/08/17 14:30 Blood Peripheral Anaerobic Blood Culture - Preliminary NO GROWTH IN 2 DAYS Resulted 02/08/17 14:50 Nasal Aspirate Influenza Types A,B Antigen (CLARISSA) - Final NEGATIVE FOR FLU A AND B ANTIGEN.... Complete Result Diagram: 02/09/1742302/09/17423 Assessment and Plan Problem List: (1) Sepsis ICD Codes: A41.9 - Sepsis, unspecified organism Status: Acute Plan: Follow blood cultures Source of GNR is uncertain Check CT abd/ pelvis Continue IV Cefepime and Levofloxacin Stop IV Vancomycin (2) Acute exacerbation of CHF (congestive heart failure) ICD Codes: I50.9 - Heart failure, unspecified Status: Acute (3) Pneumonia ICD Codes: J18.9 - Pneumonia, unspecified organism Status: Acute Plan: Check Sputum culture (4) Septicemia, Gram-negative ICD Codes: A41.50 - Gram-negative sepsis, unspecified Plan: Follow Blood culture Problem Qualifiers (1) Acute exacerbation of CHF (congestive heart failure): Qualified Codes: I50.9 - Heart failure, unspecified (2) Pneumonia: Qualified Codes: J18.9 - Pneumonia, unspecified organism (3) Sepsis: Qualified Codes: A41.9 - Sepsis, unspecified organism Apoorva Chau MD Feb 10, 2017 18:46
[2017-02-10] MEDS: METOPROLOL SUCCINATE 50 MG EXTENDED RELEASE TAB PO SCH (19:51)
[2017-02-10] MEDS: LEVOFLOXACIN 500 MG PREMIX INJ 100 ML IV SCH (19:52)
[2017-02-10] MEDS ORDERED: DIATRIZOATE MEGLUM/DIATRIZOATE SOD 9 ML CUP PO ONE (20:15)
[2017-02-10] MEDS ORDERED: DO NOT ADM ANY ANTICOAGULANT DRUGS OTHER PRN (22:30)
[2017-02-10] MEDS ORDERED: POTASSIUM PHOSPHATE IV ONE (22:45)
[2017-02-10] MEDS ORDERED: SODIUM CHLORIDE 0.9% IV ONE (22:45)
[2017-02-10] MEDS ORDERED: IOHEXOL 350 MG/ML 10 ML VIAL (for RAD DIAG) IV PUSH ONE (22:55)
--- NOTE | 2017-02-10 22:58 | MB ---
cc: HAIDER ORONA M.D., JAVIER M.D. ELSAKR,Reina YANCEY,HILARY Smith MD DATE OF CONSULTATION 02/10/17 REASON FOR CONSULTATION Is to "congestive heart failure." Mr. Youngblood is a pleasant 76-year-old gentleman with history of diabetes mellitus, hypertension, family history of coronary artery disease, used to smoke but stopped 25 years ago. No history of hyperlipidemia. He has history of paroxysmal atrial fibrillation/status post a flutter ablation and sick sinus syndrome status post permanent pacemaker placement, history of chronic obstructive pulmonary disease, history of diastolic heart failure in the past, history of mild coronary artery disease. He comes in with a 45-day history of increasing shortness of breath and lower extremity edema. He had ruptured a tendon on the left ankle and that caused swelling initially, but also went to for 4-5 days and has history of sleep apnea where he was using the C-PAP therapy. However, he was not using his home O2 for the past 4 days. He was becoming more short of breath and came back down to [place] to the emergency room. He was diuresed in the emergency room and he had had history of cough with yellowish sputum and night sweats as well as low grade temperature and then this led to drawing blood cultures where one set groove gram negative rods. ID is seeing him at the present time. Denies chest pain. Denies palpitations. Has dizzy spells if he stands up fast which is chronic. He had vertigo which was treated through Dr. Arroyo, the neurologist. Denies syncope. Sleeps on one pillow and had chronic lower extremity edema as mentioned, more in the past 4-5 days. ALLERGIES "BLEACH" FAMILY HISTORY Positive for coronary artery disease, cancer and diabetes, questionable hypertension. SOCIAL HISTORY Used to smoke but stopped 25 years ago. Denies ETOH abuse or recreational drug use. He is and lives with his . REVIEW OF SYSTEMS 12-point system review was unremarkable except what is mentioned in the history of present illness. PAST MEDICAL AND SURGICAL HISTORY Includes what is mentioned above. 1. Cardiac catheterization in August 2012 that showed only mild coronary artery disease. 2. 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 3. History of long-term anticoagulation with Warfarin. 4. History of hematoma in the past. 5. Status post appendectomy 6. Status post cholecystectomy. 7. Trigger finger surgery in the past. 8. Skin cancer removal. 9. Status post permanent pacemaker dual-chamber placement. 10. Abdominal intake aneurysm. MEDICATIONS At home 1. Albuterol inhalers. 2. Coumadin 6 mg by mouth daily 3. Metoprolol succinate 50 mg q.h.s. 4. Cartia XT 240 mg p.o. daily. 5. 25 mg p.o. daily. 6. Lasix 40 mg p.o. daily. 7. Oxycodone p.r.n. with pain. 8. Citalopram 40 mg by mouth daily. 9. 100 mg p.o. daily. Currently he is on getting 1. DuoNebs. 2. IV Solu-Medrol. He is back on his home cardiac medications. He is getting also antibiotics including vancomycin, cefepime and Levaquin. DuoNeb inhalers. PHYSICAL EXAMINATION GENERAL: A 76-year-old gentleman lying in bed in no apparent distress, alert and oriented x3 answers questions appropriately. VITAL SIGNS: Blood pressure is 130/70 mmHg, pulse of 72 beats per minute and regular, respiration 14 per minute, afebrile. HEENT: Head is normocephalic. Pupils equal, active. Throat is within normal limits. NECK: Supple. No carotid bruit. No thyromegaly. No jugular venous distension noted. However, thick neck. LUNGS: Fine crepitations at the lower third to one-half bilaterally, more on the right side. CARDIOVASCULAR: S1, S2 are normal and distant with a faint S4 gallop. No rubs or murmurs.. ABDOMEN: Obese but lax, nontender. Normoactive bowel sounds. No organomegaly or masses felt. EXTREMITIES: Trace pitting edema of the left ankle but not much of edema on both lower extremities at present. Pulses 2+ bilaterally. NEUROLOGIC: Grossly intact with no focal deficits. RECTAL: Exam deferred. LABORATORY DATA Sodium 138, potassium 3.9, BUN of 25, creatinine 0.99, glucose random was 247, phosphorous 2.3, magnesium of 2.1. BNP that showed mild elevation at 295. Initial CK and troponin were normal. Coags showed INR of 2.5, repeat is 2.5. He came with a white count of 12.7 with hemoglobin of 11.1 and a platelet count of 200. He had blood cultures of which one set is growing gram-negative rods. Nasal aspirate was negative for flu A and B antigens. IMAGING STUDIES Chest x-ray showed right bibasilar infiltrates, underlying infectious process cannot be excluded. ASSESSMENT AND RECOMMENDATIONS 1. Respiratory distress. This is likely a combination of COPD exacerbation plus possibly infectious process on top of mild ____ with his underlying diastolic heart failure likely related to four nights of hypoxia not being able to use his oxygen while he was out of town. At this point, from the cardiac management he has been diuresed about 2 liters and he is back to his ___ volume status likely. I agree with resuming back his home Lasix and Spironolactone and continue aggressive management of his COPD/infectious process with gram-negative sepsis. Infectious Disease is also consulted and Dr. Moses Rob is on the case and follow up with the recommendations. 2. Obstructive sleep apnea. Need to resume his C-PAP therapy every night with the oxygen. 3. Paroxysmal atrial fibrillation/sick sinus syndrome. His rhythm is currently appropriately pacing and with no evidence of any pacemaker malfunction on telemetry and we will continue the same. 4. Chronic anticoagulation with Coumadin. Need to resume his home Coumadin as long as there is no planned procedures or any surgical intervention. 5. Regarding his atrial fibrillation, he is back on his Cartia and beta blockers and would also continue the same. 6. Electrolyte derangements. Supplement his phosphorus levels and repeat and supplement as needed. We will send TSH and free T4 levels and would recommend treatment as indicated. At the present time, from the cardiac status I believe he is back to his baseline and we will continue his current doses of diuretics as well as Toprol and Cartia XT. Resume Coumadin unless there is a contraindication at the present time. Would watch his INR carefully with the addition of antibiotics as this may boost up his levels. The patient is to follow with Dr. Orona upon in 2-3 weeks upon discharge. I thank you for the consultation. ADDENDUM This was noting that Mr. Kohler's latest echocardiogram with Dr. Orona in September of 2015 showed normal LV systolic function and ejection fraction of 50-55% with no significant valve pathology. As mentioned above his cardiac catheterization in 2012 showed mild coronary artery disease and normal LV systolic function with an LVEDP of 18-20 mmHg. MD DOT Jiménez/ /9:57 PM /9:04 AM
--- NOTE | 2017-02-10 23:14 | RADRPT ---
EXAM DATE/TIME: 02/10/2017 22:31 [facility] COMPARISON: No previous studies available for comparison. INDICATIONS : Evaluate for abscess. IV CONTRAST: 100 cc Omnipaque 350 (iohexol) IV ORAL CONTRAST: Prescribed oral contrast ingested. RADIATION DOSE: 22.34 CTDIvol (mGy) MEDICAL HISTORY : Aneurysm, abdominal. Hypertension. Diabetes mellitus type 2. SURGICAL HISTORY : Appendectomy. Cholecystectomy.hiatal hernia ENCOUNTER: Initial ACUITY: 2 days PAIN SCALE: 5/10 LOCATION: Bilateral lower quadrant upper quadrant TECHNIQUE: Volumetric scanning of the abdomen and pelvis was performed. Using automated exposure control and ad justment of the mA and/or kV according to patient size, radiation dose was kept as low as reasonably achievable to obtain optimal diagnostic quality images. DICOM format image data is available electro nically for review and comparison. FINDINGS: There are small bilateral pleural effusions with dependent atelectasis at the lung bases. Pacer leads in right atrium and right ventricle. Mild fatty liver. Spleen, adrenals, kidneys and pancreas demonstrate no acute findings. Previous chol ecystectomy and appendectomy. Mild constipation. Ellison catheter present in decompressed bladder. There is a 4.1 cm infrarenal abdom inal aortic aneurysm not significantly changed from October 2015. No abnormal fluid collections to sugge st abscess. Small fat-containing umbilical hernia. No acute bony abnormalities. Moderate to severe de generative disc disease in the lumbar spine. Venous aneurysm right femoral vein measuring up to 2.7 c m, unchanged from October 2015. CONCLUSION: 1. 4.1 cm abdominal aortic aneurysm stable since October 2015. 2. No abnormal fluid collections within the abdomen and pelvis to suggest abscess. Small bilateral pl eural effusions with basilar dependent atelectasis in the lungs. 3. Mild constipation. Ellison catheter in bladder. Aman Coughlin MD on February 10, 2017 at 23:03 Board Certified Radiologist. This report was verified electronically.
[2017-02-11] VITALS (17 sets, daily range): BP systolic 104–150; BP diastolic 51–79; PULSE 68–80; RESP 12–28; TEMP 97.4–98.5; O2SAT 90–98
[2017-02-11] MEDS: CHLORHEXIDINE GLUCONATE 2 % 1 PACK (2 CLOTHS) TOP SCH (04:00)
[2017-02-11] MEDS: CEFEPIME INJ 2,000 MG in SODIUM CHLORIDE 0.9% INJ 100 ML IV SCH ×3 (05:07→19:57)
[2017-02-11 05:11] LABS: INTERNATIONAL NORMALIZED RATIO 2.8 RATIO; PROTHROMBIN TIME - PATIENT 32.1 SEC (9.8-11.6)
[2017-02-11 05:19] LABS: POTASSIUM 4.6 MEQ/L (3.5-5.1)
[2017-02-11 05:22] LABS: BICARBONATE 27.1 MEQ/L (21.0-32.0)
[2017-02-11] MEDS: RESP: ALBUTEROL 2.5 MG/IPRATROPIUM 0.5 MG NEB (SCH) INH ×3 (08:08→20:19)
[2017-02-11] MEDS: PANTOPRAZOLE SOD 40 MG DELAYED RELEASE TAB PO SCH (10:47)
[2017-02-11] MEDS: SPIRONOLACTONE 25 MG TAB PO SCH (10:47)
[2017-02-11] MEDS: predniSONE 20 MG TAB PO SCH (10:47)
[2017-02-11] MEDS: DILTIAZEM-CD 240 MG CAP ER PO SCH (10:47)
[2017-02-11] MEDS: FUROSEMIDE 40 MG TAB PO SCH (10:48)
[2017-02-11] MEDS: INSULIN ASPART SUPPLEMENTAL SCALE SQ SCH ×4 (10:48→20:43)
[2017-02-11] MEDS: SODIUM CHLORIDE 0.9% FLUSH 10 ML FLUSH IV FLUSH SCH ×2 (10:48→20:39)
[2017-02-11] MEDS: DOCUSATE SODIUM 50 MG/SENNA 8.6 MG TAB PO SCH ×2 (10:48→20:39)
[2017-02-11 10:55] LABS: FREE T4 0.97 NG/DL (0.76-1.46)
--- NOTE | 2017-02-11 11:27 | HHI.PR ---
Subjective Remarks Patient states dyspnea has improved. Denies fever or chills. Objective Vitals Vital Signs Date Time Temp Pulse Resp B/P (MAP) Pulse Ox O2 Delivery O2 Flow Rate FiO2 02/11/17 10:00 74 16 150/76 (100) 92 02/11/17 10:00 74 02/11/17 09:00 68 12 126/60 (82) 98 02/11/17 08:12 97 Nasal Cannula 4.00 02/11/17 08:00 97.4 70 23 126/68 (87) 95 02/11/17 08:00 72 02/11/17 08:00 Bi-Pap 02/11/17 07:00 72 16 129/65 (86) 92 02/11/17 06:00 76 02/11/17 06:00 76 18 137/65 (89) 94 02/11/17 05:00 68 14 122/64 (83) 96 02/11/17 04:00 70 02/11/17 04:00 98.0 70 19 148/77 (100) 91 02/11/17 03:00 74 24 147/79 (101) 90 02/11/17 02:00 68 02/11/17 02:00 68 23 137/74 (95) 91 02/11/17 01:00 68 28 104/51 (68) 95 02/11/17 00:00 70 02/11/17 00:00 98.0 70 21 142/70 (94) 91 02/10/17 23:00 70 25 140/71 (94) 02/10/17 22:00 70 20 138/68 (91) 91 02/10/17 22:00 70 02/10/17 21:00 72 21 136/63 (87) 92 02/10/17 20:00 97.8 68 25 121/56 (77) 92 02/10/17 20:00 68 02/10/17 19:13 92 Nasal Cannula 4.00 02/10/17 19:00 68 0 124/64 (84) 91 02/10/17 18:00 72 02/10/17 18:00 72 23 127/68 (87) 93 02/10/17 18:00 72 02/10/17 17:00 80 02/10/17 17:00 80 02/10/17 17:00 80 28 116/59 (78) 92 02/10/17 16:00 72 02/10/17 16:00 72 02/10/17 16:00 72 29 113/58 (76) 91 02/10/17 15:00 68 16 101/47 (65) 92 02/10/17 15:00 68 02/10/17 15:00 68 02/10/17 14:00 78 30 125/56 (79) 91 02/10/17 14:00 78 02/10/17 13:33 96 Nasal Cannula 3.00 02/10/17 12:00 68 19 137/66 (89) 94 02/10/17 12:00 68 I/O 02/10/17 02/10/17 02/10/17 02/11/17 02/11/17 02/11/17 07:00 15:00 23:00 07:00 15:00 23:00 Intake Total 475 ml 100 ml 1398 ml 1165 ml Output Total 775 ml 900 ml 1900 ml Balance -300 ml 100 ml 498 ml -735 ml Intake Oral 680 ml 960 ml IV Total 475 ml 100 ml 718 ml 205 ml Output Urine Total 775 ml 900 ml 1900 ml # Bowel Movements 0 Result Diagram: 02/09/17 0424 02/11/17 0440 Objective Remarks GENERAL: Well-nourished, well-developed obese CM patient. SKIN: Warm and dry. HEAD: Normocephalic. EYES: No scleral icterus. No injection or drainage. NECK: Supple, trachea midline. No JVD or lymphadenopathy. CARDIOVASCULAR: irregular rate and rhythm without murmurs, gallops, or rubs. RESPIRATORY: Breath sounds equal but coarse bilaterally. No accessory muscle use. GASTROINTESTINAL: Abdomen soft, non-tender, nondistended. EXTREMITIES: trace pedal edema. NEUROLOGICAL: Awake, alert, and oriented x 3. Non-focal. A/P Assessment and Plan 76-year-old male -Acute Hypoxemic respiratory failure due to COPD exacerbation, CHF exacerbation , possible PNA - improved, s/p BIPAP -Continue vancomycin, cefepime, levaquin. -Continue lasix 40 mg PO daily. -solumedrol IV per pulm -duonebs -CPAP at night, O2 NC at day -Pulmonology following -Status post cardiology consultation -Will need home walk test to determine if he needs oxygen during the day as patient tells me he wears it only at night -GNR bacteremia/sepsis - UA was clear, unclear source. cont cefepime, ID following. Abdominal CT scan negative for source. Repeat blood cultures today. -IMANI-cont cpap - A. fib, Pacemaker dependent-cont Toprol-XL, diltiazem ER, coumadin. -DVT px - [facility]in [facility] Discussed with at bedside Camilla Coronado MD Feb 11, 2017 11:27
--- NOTE | 2017-02-11 11:33 | RADRPT ---
EXAM DATE/TIME: 02/11/2017 10:24 [facility] COMPARISON: CHEST SINGLE AP, February 09, 2017, 6:01. INDICATIONS : Short of breath. MEDICAL HISTORY : Congestive heart failure. Chronic obstructive pulmonary disease. Hypertension. SURGICAL HISTORY : Pacemaker. ENCOUNTER: Subsequent ACUITY: 3 days PAIN SCORE: 0/10 LOCATION: Bilateral chest FINDINGS: Pacer implanted on the right. Heart remains enlarged with increasing interstitial edema. There is m inimal bibasilar parenchymal change without pleural effusion or pneumothorax. CONCLUSION: Increasing interstitial edema when compared to the previous study. Moses Ashraf MD FACR on February 11, 2017 at 11:21 Board Certified Radiologist. This report was verified electronically.
[2017-02-11] MEDS: WARFARIN SOD 5 MG TAB PO SCH (17:40)
[2017-02-11] MEDS: LEVOFLOXACIN 500 MG PREMIX INJ 100 ML IV SCH (20:38)
[2017-02-11] MEDS: METOPROLOL SUCCINATE 50 MG EXTENDED RELEASE TAB PO SCH (20:39)
[2017-02-12] VITALS (10 sets, daily range): BP systolic 107–153; BP diastolic 51–75; PULSE 69–82; RESP 14–28; TEMP 96–99.1; O2SAT 93–98
[2017-02-12] MEDS: CHLORHEXIDINE GLUCONATE 2 % 1 PACK (2 CLOTHS) TOP SCH (04:00)
[2017-02-12] MEDS: CEFEPIME INJ 2,000 MG in SODIUM CHLORIDE 0.9% INJ 100 ML IV SCH ×2 (04:01→12:00)
[2017-02-12 04:37] LABS: HEMATOCRIT 32.3 % (39.0-51.0); MEAN CELL VOLUME 90.8 FL (80.0-100.0); MEAN CORPUSCULAR HEMOGLOBIN 30.1 PG (27.0-34.0); MEAN CORPUSCULAR HGB CONC 33.1 % (32.0-36.0); PLATELET COUNT 226 TH/MM3 (150-450); RED BLOOD COUNT 3.56 MIL/MM3 (4.50-5.90); RED CELL DISTRIBUTION WIDTH 13.8 % (11.6-17.2); WHITE BLOOD COUNT 13.5 TH/MM3 (4.0-11.0)
[2017-02-12 04:38] LABS: HEMO FLAGS AUTO DIFF
[2017-02-12 04:48] LABS: BICARBONATE 30.9 MEQ/L (21.0-32.0); INTERNATIONAL NORMALIZED RATIO 2.2 RATIO; PROTHROMBIN TIME - PATIENT 25.2 SEC (9.8-11.6)
[2017-02-12 04:57] LABS: BANDS 1 % (0-6); NEUTROPHIL # MANUAL DIFF 10.1 TH/MM3 (1.8-7.7); POLYS (SEG NEUTROPHILS) 74 % (16-70); WBC DIFF SAMPLE 100
[2017-02-12 04:58] LABS: PLATELET ESTIMATE SMEAR NORMAL (NORMAL); PLATELET MORPHOLOGY NORMAL (NORMAL); SCAN/DIFF FINAL DIFF MANUAL
[2017-02-12] MEDS: RESP: ALBUTEROL 2.5 MG/IPRATROPIUM 0.5 MG NEB (SCH) INH ×3 (07:35→19:17)
[2017-02-12] MEDS: INSULIN ASPART SUPPLEMENTAL SCALE SQ SCH ×4 (08:00→21:06)
[2017-02-12] MEDS: DOCUSATE SODIUM 50 MG/SENNA 8.6 MG TAB PO SCH ×2 (08:52→20:57)
[2017-02-12] MEDS: DILTIAZEM-CD 240 MG CAP ER PO SCH (08:52)
[2017-02-12] MEDS: PANTOPRAZOLE SOD 40 MG DELAYED RELEASE TAB PO SCH (08:52)
[2017-02-12] MEDS: SPIRONOLACTONE 25 MG TAB PO SCH (08:52)
[2017-02-12] MEDS: predniSONE 20 MG TAB PO SCH (08:52)
[2017-02-12] MEDS: SODIUM CHLORIDE 0.9% FLUSH 10 ML FLUSH IV FLUSH SCH ×2 (08:53→20:57)
[2017-02-12] MEDS: FUROSEMIDE 40 MG TAB PO SCH (08:53)
--- NOTE | 2017-02-12 11:51 | HHI.IDPN ---
Note Infectious Disease Note ID coverage. Patient feels okay but weak. No chills. no fever. Has cough without sputum production. On O2 via nasal canula. 76 male came in with worsening shortness of breath, cough and some swelling around ankles- found to be in acute CHF. ON admission he had leucocytosis as well as low grade fevers and so blood cultures were drawn which now have 1 of 4 GNR and so the consult. No nausea, vomiting or abdominal pain. Some sputum production. No urinary symptoms. No recent wounds. Coded Allergies: No Known Allergies (Unverified , 02/08/17) Past Medical History CHF CAD DM AAA- awaiting surgical opinion S/p Pacemaker] Arthritis Skin cancers Past Surgical History Appendectomy Cholecystectomy Pacemaker Trigger finger Skin cancer removal ANTIBIOTICS: Cefepime and Levofloxacin OBJECTIVE: Vital Signs Date Time Temp Pulse Resp B/P (MAP) Pulse Ox O2 Delivery O2 Flow Rate FiO2 02/12/17 08:00 74 02/12/17 08:00 98.3 74 28 134/57 (82) 94 02/12/17 08:00 82 02/12/17 08:00 98.1 73 26 134/57 (82) 94 02/12/17 07:39 93 Nasal Cannula 4.00 02/12/17 07:00 94 Nasal Cannula 3.00 02/12/17 04:00 98.6 77 14 153/75 (101) 97 02/12/17 00:00 97.8 73 16 107/51 (69) 96 02/11/17 20:19 93 Nasal Cannula 4.00 02/11/17 20:00 73 02/11/17 20:00 98.1 73 22 134/59 (84) 93 02/11/17 19:00 93 Nasal Cannula 3.00 02/11/17 16:33 98.2 68 18 141/59 (86) 94 02/11/17 12:00 98.5 80 25 93 Laboratory Tests Test 02/12/17 04:30 White Blood Count 13.5 TH/MM3 Red Blood Count 3.56 MIL/MM3 Hemoglobin 10.7 GM/DL Hematocrit 32.3 % Mean Corpuscular Volume 90.8 FL Mean Corpuscular Hemoglobin 30.1 PG Mean Corpuscular Hemoglobin Concent 33.1 % Red Cell Distribution Width 13.8 % Platelet Count 226 TH/MM3 Mean Platelet Volume 8.1 FL CBC Comment AUTO DIFF Differential Total Cells Counted 100 Neutrophils % (Manual) 74 % Band Neutrophils % 1 % Lymphocytes % 17 % Monocytes % 8 % Neutrophils # (Manual) 10.1 TH/MM3 Differential Comment FINAL DIFF MANUAL Platelet Estimate NORMAL Platelet Morphology Comment NORMAL Red Cell Morphology Comment NORMAL Laboratory Tests Test 02/11/17 04:40 02/12/17 04:30 Blood Urea Nitrogen 31 MG/DL 25 MG/DL Creatinine 0.91 MG/DL 0.80 MG/DL Random Glucose 268 MG/DL 149 MG/DL Calcium Level 8.9 MG/DL 8.7 MG/DL Phosphorus Level 2.6 MG/DL Sodium Level 137 MEQ/L 138 MEQ/L Potassium Level 4.6 MEQ/L 4.0 MEQ/L Chloride Level 102 MEQ/L 101 MEQ/L Carbon Dioxide Level 27.1 MEQ/L 30.9 MEQ/L Anion Gap 8 MEQ/L 6 MEQ/L Estimat Glomerular Filtration Rate 81 ML/MIN 93 ML/MIN Free Thyroxine 0.97 NG/DL Thyroid Stimulating Hormone 3rd Gen 1.650 uIU/ML Microbiology Date/Time Source Procedure Growth Status 02/11/17 11:40 Blood Peripheral Aerobic Blood Culture Pending Received 02/11/17 11:40 Blood Peripheral Anaerobic Blood Culture Pending Received 02/11/17 11:30 Blood Peripheral Aerobic Blood Culture Pending Received 02/11/17 11:30 Blood Peripheral Anaerobic Blood Culture Pending Received GENERAL: Alert and oriented. SKIN: No rash. HEENT: EOMI,SALVATORE. No icterus. NECK: No adenopathy. CHEST: Decreased breath sounds. Slight rhonchi at the bases. CARDIAC: Nl S1S2. No murmurs. ABDOMEN: Soft , non tender. positive bowel sounds. EXTREMITIES: No CCE. IMPRESSION: Bacteremia. Gram negative. 1 of 4 bottles with Pantoea. ? contaminant vs pulmonary source of infection. Repeat culture pending. Pneumonia - increasing interstitial changes and persisting cough. RECOMMEND: Continue Levaquin and cefepime. Follow the blood cultures. Monitor clinical status. Patient to be followed By Dr Lassiter tomorrow. Phoenix Damian MD Feb 12, 2017 11:50
[2017-02-12] MEDS ORDERED: diphenhydrAMINE HCL 50 MG/ML VIAL IM ONE (14:00)
--- NOTE | 2017-02-12 14:30 | HHI.PR ---
Subjective Remarks Patient had an outbreak of a rash at the start of his cefepime dosing. Cefepime has been held/discontinued for this. No other complaints today. Patient's breathing is improving slowly. Objective Vital Signs Date Time Temp Pulse Resp B/P (MAP) Pulse Ox O2 Delivery O2 Flow Rate FiO2 02/12/17 12:00 99.1 70 26 131/63 (85) 98 02/12/17 08:00 74 02/12/17 08:00 98.3 74 28 134/57 (82) 94 02/12/17 08:00 82 02/12/17 08:00 98.1 73 26 134/57 (82) 94 02/12/17 07:39 93 Nasal Cannula 4.00 02/12/17 07:00 94 Nasal Cannula 3.00 02/12/17 04:00 98.6 77 14 153/75 (101) 97 02/12/17 00:00 97.8 73 16 107/51 (69) 96 02/11/17 20:19 93 Nasal Cannula 4.00 02/11/17 20:00 73 02/11/17 20:00 98.1 73 22 134/59 (84) 93 02/11/17 19:00 93 Nasal Cannula 3.00 02/11/17 16:33 98.2 68 18 141/59 (86) 94 I/O 02/11/17 02/11/17 02/11/17 02/12/17 02/12/17 02/12/17 07:00 15:00 23:00 07:00 15:00 23:00 Intake Total 1165 ml 110 ml 900 ml 120 ml 10 ml Output Total 1900 ml 2950 ml Balance -735 ml 110 ml -2050 ml 120 ml 10 ml Intake Oral 960 ml 900 ml 120 ml IV Total 205 ml 110 ml 10 ml Output Urine Total 1900 ml 2950 ml # Voids 6 # Bowel Movements 0 0 Result Diagram: 02/12/17 04302/12/17 0430 Objective Remarks GENERAL: NAD, A&Ox3 HEAD: Normocephalic. NECK: Supple, trachea midline. No lymphadenopathy. EYES: No scleral icterus. No injection or drainage. CARDIOVASCULAR: Regular rate and rhythm without murmurs, gallops, or rubs. RESPIRATORY: Breath sounds equal bilaterally. No accessory muscle use. GASTROINTESTINAL: Abdomen soft, non-tender, nondistended. MUSCULOSKELETAL: No cyanosis, or edema. SKIN: Warm and dry. NEURO: No focal neurological deficitis. A/P Problem List: (1) Pneumonia ICD Code: J18.9 - Pneumonia, unspecified organism Status: Acute (2) Acute exacerbation of CHF (congestive heart failure) ICD Code: I50.9 - Heart failure, unspecified Status: Acute (3) Sepsis ICD Code: A41.9 - Sepsis, unspecified organism Status: Acute (4) Hypoxia ICD Code: R09.02 - Hypoxemia Status: Acute Assessment and Plan Assessment and Plan 76-year-old male admitted secondary to acute respiratory failure with hypoxia, related to pneumonia and COPD/CHF exacerbations. Sepsis Resolved Acute urticaria Reaction started with start of cefepime today Benadryl provided Cefepime discontinued Acute respiratory failure COPD exacerbation CHF exacerbation Suspected pneumonia Patient able to be weaned off BiPAP now MedSurg status now Continue Levaquin Cefepime stopped secondary to allergic reaction Continue Lasix Continue IV Solu-Medrol Continue duo nebs Continue oxygen as needed CPAP at night (baseline) Pulmonology following Infectious disease following Cardiology following Possible bacteremia One of the patient's culture has grown Pantoea [employer] Cefepime had to be held secondary to allergic reaction Infectious disease physician following Obstructive sleep apnea Continue CPAP Atrial fibrillation Pacemaker dependent Continue Toprol-XL Continue diltiazem ER Continue Coumadin Follow INR DVT prophylaxis Patient on Coumadin Problem Qualifiers (1) Pneumonia: Qualified Codes: J18.9 - Pneumonia, unspecified organism (2) Acute exacerbation of CHF (congestive heart failure): Qualified Codes: I50.9 - Heart failure, unspecified (3) Sepsis: Qualified Codes: A41.9 - Sepsis, unspecified organism Derrek Ortiz MD Feb 12, 2017 14:30
[2017-02-12] MEDS: WARFARIN SOD 5 MG TAB PO SCH (17:35)
[2017-02-12] MEDS ORDERED: guaiFENesin SOLUTION 200 MG/10 ML CUP PO ONE (20:15)
[2017-02-12] MEDS: LEVOFLOXACIN 500 MG PREMIX INJ 100 ML IV SCH (20:58)
[2017-02-12] MEDS: METOPROLOL SUCCINATE 50 MG EXTENDED RELEASE TAB PO SCH (21:12)
[2017-02-12] MEDS: ACETAMINOPHEN 325 MG TAB PO PRN (23:02)
[2017-02-13] MEDS: CHLORHEXIDINE GLUCONATE 2 % 1 PACK (2 CLOTHS) TOP SCH (01:14)
[2017-02-13] MEDS: guaiFENesin/CODEINE SYRUP 200 MG/20 MG/10 ML CUP PO PRN ×3 (04:17→21:33)
[2017-02-13 07:45] LABS: INTERNATIONAL NORMALIZED RATIO 1.8 RATIO
[2017-02-13] MEDS: RESP: ALBUTEROL 2.5 MG/IPRATROPIUM 0.5 MG NEB (SCH) INH ×5 (07:46→23:17)
[2017-02-13 07:50] VITALS: O2SAT 93
[2017-02-13 07:52] LABS: BASOPHIL % 0.2 % (0.0-2.0); EOSINOPHIL # 0.4 TH/MM3 (0-0.4); EOSINOPHIL % 3.8 % (0.0-4.0); HEMATOCRIT 31.9 % (39.0-51.0); HEMO FLAGS DIFF FINAL; LYMPH % 16.8 % (9.0-44.0); LYMPHOCYTE # 1.7 TH/MM3 (1.0-4.8); MEAN CELL VOLUME 91.9 FL (80.0-100.0); MEAN CORPUSCULAR HEMOGLOBIN 31.2 PG (27.0-34.0); MEAN CORPUSCULAR HGB CONC 33.9 % (32.0-36.0); MONO % 10.3 % (0.0-8.0); NEUT % 68.9 % (16.0-70.0); PLATELET COUNT 230 TH/MM3 (150-450); RED BLOOD COUNT 3.47 MIL/MM3 (4.50-5.90); RED CELL DISTRIBUTION WIDTH 13.9 % (11.6-17.2); WHITE BLOOD COUNT 10.2 TH/MM3 (4.0-11.0)
[2017-02-13] MEDS: INSULIN ASPART SUPPLEMENTAL SCALE SQ SCH ×4 (08:00→21:00)
[2017-02-13 08:29] VITALS: BP 124/68; PULSE 78; RESP 16; TEMP 97.2; O2SAT 97
[2017-02-13] MEDS: DILTIAZEM-CD 240 MG CAP ER PO SCH (08:53)
[2017-02-13] MEDS: FUROSEMIDE 40 MG TAB PO SCH (08:53)
[2017-02-13] MEDS: PANTOPRAZOLE SOD 40 MG DELAYED RELEASE TAB PO SCH (08:53)
[2017-02-13] MEDS: DOCUSATE SODIUM 50 MG/SENNA 8.6 MG TAB PO SCH ×2 (08:53→21:32)
[2017-02-13] MEDS: SPIRONOLACTONE 25 MG TAB PO SCH (08:53)
[2017-02-13] MEDS: SODIUM CHLORIDE 0.9% FLUSH 10 ML FLUSH IV FLUSH SCH ×2 (08:55→21:33)
[2017-02-13] MEDS: methylPREDNISolone SOD SUCC 40 MG/1 ML VIAL IV PUSH SCH ×3 (09:08→23:55)
--- NOTE | 2017-02-13 10:36 | RADRPT ---
EXAM DATE/TIME: 02/13/2017 09:47 [facility] COMPARISON: No previous studies available for comparison. INDICATIONS : Short of breath and cough. Evaluate for pneumonia. RADIATION DOSE: 24.37 CTDIvol (mGy) ; Patient body habitus MEDICAL HISTORY : Chronic obstructive pulmonary disease. Congestive heart failure. Aneurysm, abdominal. Diabetes. Hype rtension. SURGICAL HISTORY : Pacemaker. Appendectomy. Cholecystectomy. ENCOUNTER: Initial ACUITY: 2 weeks PAIN SCALE: 4/10 LOCATION: chest TECHNIQUE: Volumetric scanning of the chest was performed. Using automated exposure control and adjustment of t he mA and/or kV according to patient size, radiation dose was kept as low as reasonably achievable to obtain optimal diagnostic quality images. DICOM format image data is available electronically for r eview and comparison. Follow-up recommendations for detected pulmonary nodules are based at a minimum on nodule size and pa tient risk factors according to Fleischner Society Guidelines. FINDINGS: Mild interstitial infiltrate is present in both lungs. Coarse parenchymal changes are seen in both b ases worse on the right than the left. Marked pleural thickening is seen over the right lower lung. Minimal pleur al thickening seen on the left. There is no pleural effusion. There is mild cardiomegaly with pacer leads evident. Moderate coronary artery calcifications are not ed. Moderate mediastinal adenopathy is present with large paratracheal node measuring 1.8 cm. This is ab normal in size. Portion of liver and spleen identified are free of focal defects. Moderate degenerative changes are present in the thoracic spine. CONCLUSION: Abnormal CT scan of the chest. A coarse pleural thickening is seen on the right without effusion. Mild interstitial prominence is evident. Moses Ashraf MD FACR on February 13, 2017 at 10:10 Board Certified Radiologist. This report was verified electronically.
[2017-02-13] MEDS ORDERED: diphenhydrAMINE HCL 50 MG/ML VIAL IV PUSH ONE (12:00)
--- NOTE | 2017-02-13 12:00 | HHI.PR ---
Subjective Remarks Rash is improved but remains at his legs. Cefepime has been discontinued secondary to an allergic reaction, but this may still be causing rash. He has no new complaints today. When I visited him he was on room air because he was eating. Oxygen saturations on room air are ranging between 85 and 88%. He is not yet to baseline with his functional status. Objective Vital Signs Date Time Temp Pulse Resp B/P (MAP) Pulse Ox O2 Delivery O2 Flow Rate FiO2 02/13/17 08:29 97.2 78 16 124/68 (86) 97 02/13/17 07:50 93 Nasal Cannula 4.00 02/12/17 23:35 98.4 70 24 120/67 (84) 95 02/12/17 20:50 Nasal Cannula 3.00 02/12/17 20:00 96.0 69 22 114/61 (78) 98 02/12/17 19:19 96 Nasal Cannula 4.00 02/12/17 17:38 97.6 72 19 140/71 (94) 93 02/12/17 16:00 98.2 73 22 128/55 (79) 96 02/12/17 12:00 99.1 70 26 131/63 (85) 98 I/O 02/12/17 02/12/17 02/12/17 02/13/17 02/13/17 02/13/17 07:00 15:00 23:00 07:00 15:00 23:00 Intake Total 120 ml 10 ml 1080 ml Output Total 1800 ml Balance 120 ml 10 ml -720 ml Intake Oral 120 ml 980 ml IV Total 10 ml 100 ml Output Urine Total 1800 ml # Voids 6 12 # Bowel Movements 0 2 Result Diagram: 02/13/17 0712 02/13/17 0712 Objective Remarks GENERAL: NAD, A&Ox3 HEAD: Normocephalic. NECK: Supple, trachea midline. No lymphadenopathy. EYES: No scleral icterus. No injection or drainage. CARDIOVASCULAR: Regular rate and rhythm without murmurs, gallops, or rubs. RESPIRATORY: Breath sounds equal bilaterally. No accessory muscle use. GASTROINTESTINAL: Abdomen soft, non-tender, nondistended. MUSCULOSKELETAL: No cyanosis, or edema. SKIN: Warm and dry. NEURO: No focal neurological deficitis. A/P Problem List: (1) Pneumonia ICD Code: J18.9 - Pneumonia, unspecified organism Status: Acute (2) Acute exacerbation of CHF (congestive heart failure) ICD Code: I50.9 - Heart failure, unspecified Status: Acute (3) Sepsis ICD Code: A41.9 - Sepsis, unspecified organism Status: Acute (4) Hypoxia ICD Code: R09.02 - Hypoxemia Status: Acute Assessment and Plan Assessment and Plan 76-year-old male admitted secondary to acute respiratory failure with hypoxia, related to pneumonia and COPD/CHF exacerbations. Continue antibiotics. Continue diuresis. Follow clinically for improvement. Continue oxygen and wean as tolerated. Sepsis Resolved Acute urticaria Reaction started with start of cefepime today Benadryl provided Cefepime discontinued Acute respiratory failure COPD exacerbation CHF exacerbation Suspected pneumonia Patient able to be weaned off BiPAP now MedSurg status now Continue Levaquin Cefepime stopped secondary to allergic reaction Continue Lasix Continue IV Solu-Medrol Continue duo nebs Continue oxygen as needed CPAP at night (baseline) Pulmonology following Infectious disease following Cardiology following Possible bacteremia One of the patient's culture has grown Pantoea [employer] Cefepime had to be held secondary to allergic reaction Infectious disease physician following Obstructive sleep apnea Continue CPAP Atrial fibrillation Pacemaker dependent Continue Toprol-XL Continue diltiazem ER Continue Coumadin Follow INR DVT prophylaxis Patient on Coumadin Problem Qualifiers (1) Pneumonia: Qualified Codes: J18.9 - Pneumonia, unspecified organism (2) Acute exacerbation of CHF (congestive heart failure): Qualified Codes: I50.9 - Heart failure, unspecified (3) Sepsis: Qualified Codes: A41.9 - Sepsis, unspecified organism Derrek Ortiz MD Feb 13, 2017 12:00
[2017-02-13 12:44] VITALS: BP 115/51; PULSE 74; RESP 18; TEMP 96.7; O2SAT 96
[2017-02-13] MEDS ORDERED: WARFARIN SOD 4 MG TAB PO ONE (16:00)
--- NOTE | 2017-02-13 19:13 | HHI.IDPN ---
Subjective Subjective Remarks ID [id number] ? M came in with worsening shortness of breath, cough and some swelling around ankles- found to be in acute CHF. ON admission he had leucocytosis as well as low grade fevers and so blood cultures were drawn which now have 1 of 4 Pantae . No nausea, vomiting or abdominal pain. Some sputum production, but no expectorating . No urinary symptoms. No recent wounds. Patient feels weak. No chills. no fever. Has cough without sputum production. No disuria On O2 via nasal canula. Antibiotics levaquine Past Medical History CHF CAD DM AAA- awaiting surgical opinion S/p Pacemaker] Arthritis Skin cancers Past Surgical History Appendectomy Cholecystectomy Pacemaker Trigger finger Skin cancer removal Allergies: Coded Allergies: cefepime (Verified Allergy, Unknown, Itching, 02/13/17) Objective . Vital Signs Date Time Temp Pulse Resp B/P (MAP) Pulse Ox O2 Delivery O2 Flow Rate FiO2 02/13/17 16:13 94 Nasal Cannula 3.00 02/13/17 12:44 96.7 74 18 115/51 (72) 96 02/13/17 08:29 97.2 78 16 124/68 (86) 97 02/13/17 07:50 93 Nasal Cannula 4.00 02/12/17 23:35 98.4 70 24 120/67 (84) 95 02/12/17 20:50 Nasal Cannula 3.00 02/12/17 20:00 96.0 69 22 114/61 (78) 98 02/12/17 19:19 96 Nasal Cannula 4.00 . Laboratory Tests Test 02/12/17 04:30 02/13/17 07:12 White Blood Count 13.5 TH/MM3 10.2 TH/MM3 Red Blood Count 3.56 MIL/MM3 3.47 MIL/MM3 Hemoglobin 10.7 GM/DL 10.8 GM/DL Hematocrit 32.3 % 31.9 % Mean Corpuscular Volume 90.8 FL 91.9 FL Mean Corpuscular Hemoglobin 30.1 PG 31.2 PG Mean Corpuscular Hemoglobin Concent 33.1 % 33.9 % Red Cell Distribution Width 13.8 % 13.9 % Platelet Count 226 TH/MM3 230 TH/MM3 Mean Platelet Volume 8.1 FL 8.0 FL CBC Comment AUTO DIFF DIFF FINAL Differential Total Cells Counted 100 Neutrophils % (Manual) 74 % Band Neutrophils % 1 % Lymphocytes % 17 % Monocytes % 8 % Neutrophils # (Manual) 10.1 TH/MM3 Differential Comment FINAL DIFF MANUAL Platelet Estimate NORMAL Platelet Morphology Comment NORMAL Red Cell Morphology Comment NORMAL Neutrophils (%) (Auto) 68.9 % Lymphocytes (%) (Auto) 16.8 % Monocytes (%) (Auto) 10.3 % Eosinophils (%) (Auto) 3.8 % Basophils (%) (Auto) 0.2 % Neutrophils # (Auto) 7.0 TH/MM3 Lymphocytes # (Auto) 1.7 TH/MM3 Monocytes # (Auto) 1.1 TH/MM3 Eosinophils # (Auto) 0.4 TH/MM3 Basophils # (Auto) 0.0 TH/MM3 Laboratory Tests Test 02/12/17 04:30 02/13/17 07:12 Blood Urea Nitrogen 25 MG/DL Creatinine 0.80 MG/DL 0.81 MG/DL Random Glucose 149 MG/DL Calcium Level 8.7 MG/DL Sodium Level 138 MEQ/L Potassium Level 4.0 MEQ/L Chloride Level 101 MEQ/L Carbon Dioxide Level 30.9 MEQ/L Anion Gap 6 MEQ/L Estimat Glomerular Filtration Rate 93 ML/MIN 92 ML/MIN Microbiology Date/Time Source Procedure Growth Status 02/11/17 11:40 Blood Peripheral Aerobic Blood Culture - Preliminary NO GROWTH IN 2 DAYS Resulted 02/11/17 11:40 Blood Peripheral Anaerobic Blood Culture - Preliminary NO GROWTH IN 2 DAYS Resulted 02/11/17 11:30 Blood Peripheral Aerobic Blood Culture - Preliminary NO GROWTH IN 2 DAYS Resulted 02/11/17 11:30 Blood Peripheral Anaerobic Blood Culture - Preliminary NO GROWTH IN 2 DAYS Resulted Imaging Last Impressions Chest CT 02/13/17 0000 Signed Impressions: Service Date/Time: Monday, February 13, 2017 09:47 - CONCLUSION: Abnormal CT scan of the chest. A coarse pleural thickening is seen on the right without effusion. Mild interstitial prominence is evident. Moses Ashraf MD FACR Chest X-Ray 02/11/17 0000 Signed Impressions: Service Date/Time: Saturday, February 11, 2017 10:24 - CONCLUSION: Increasing interstitial edema when compared to the previous study. Moses Ashraf MD FACR Abdomen/Pelvis CT 02/10/17 0000 Signed Impressions: Service Date/Time: Friday, February 10, 2017 22:31 - CONCLUSION: 1. 4.1 cm abdominal aortic aneurysm stable since October 2015. 2. No abnormal fluid collections within the abdomen and pelvis to suggest abscess. Small bilateral pleural effusions with basilar dependent atelectasis in the lungs. 3. Mild constipation. Ellison catheter in bladder. Aman Coughlin MD Physical Exam GENERAL: Alert and oriented. SKIN: No rash. HEENT: EOMI,SALVATORE. No icterus. moist mucosae NECK: No adenopathy. No JVD CHEST: Decreased breath sounds. Clear to auscultation Symmetric resp movements CARDIAC: Nl S1S2. No murmurs. ABDOMEN: Soft , non tender. positive bowel sounds. No hepatosplenomegaly EXTREMITIES: No cyanosis, clubbing, edema : no palpable bladder distention NEURO: awke, alert non focal PSYCH: calm cooperative Assessment & Plan Remarks IMPRESSION: Bacteremia. . 1 of 4 bottles with Pantoea. ? source of infection. - pt with PPM Repeat culture pending. Pneumonia - increasing interstitial changes and persisting cough. Allergy to cefepime. RECOMMEND: Continue Levaquin Follow the repeat blood cultures. Monitor clinical status. 2 d Rachna Brown MD Feb 13, 2017 19:13
[2017-02-13 19:16] VITALS: O2SAT 94
[2017-02-13 19:49] VITALS: BP 108/52; PULSE 70; RESP 16; TEMP 97.6; O2SAT 95
[2017-02-13] MEDS: METOPROLOL SUCCINATE 50 MG EXTENDED RELEASE TAB PO SCH (21:00)
[2017-02-13] MEDS: LEVOFLOXACIN 500 MG TAB PO SCH (21:33)
[2017-02-13 23:00] VITALS: PULSE 69
[2017-02-14] VITALS (10 sets, daily range): BP systolic 107–137; BP diastolic 50–71; PULSE 70–88; RESP 15–22; TEMP 96–98.4; O2SAT 94–97
[2017-02-14] MEDS: RESP: ALBUTEROL 2.5 MG/IPRATROPIUM 0.5 MG NEB (SCH) INH ×5 (03:29→22:43)
[2017-02-14] MEDS: CHLORHEXIDINE GLUCONATE 2 % 1 PACK (2 CLOTHS) TOP SCH (04:00)
[2017-02-14 08:10] LABS: PROTHROMBIN TIME - PATIENT 22.3 SEC (9.8-11.6)
[2017-02-14] MEDS: SODIUM CHLORIDE 0.9% FLUSH 10 ML FLUSH IV FLUSH SCH ×2 (08:37→21:13)
[2017-02-14] MEDS: guaiFENesin/CODEINE SYRUP 200 MG/20 MG/10 ML CUP PO PRN ×2 (08:37→17:38)
[2017-02-14] MEDS: PANTOPRAZOLE SOD 40 MG DELAYED RELEASE TAB PO SCH (08:38)
[2017-02-14] MEDS: SPIRONOLACTONE 25 MG TAB PO SCH (08:38)
[2017-02-14] MEDS: methylPREDNISolone SOD SUCC 40 MG/1 ML VIAL IV PUSH SCH ×2 (08:38→17:28)
[2017-02-14] MEDS: DOCUSATE SODIUM 50 MG/SENNA 8.6 MG TAB PO SCH ×2 (08:38→21:12)
[2017-02-14] MEDS: FUROSEMIDE 40 MG TAB PO SCH (08:38)
[2017-02-14] MEDS: DILTIAZEM-CD 240 MG CAP ER PO SCH (08:38)
[2017-02-14] MEDS: INSULIN ASPART SUPPLEMENTAL SCALE SQ SCH ×4 (08:56→21:14)
--- NOTE | 2017-02-14 09:40 | HHI.PR ---
Subjective Remarks Respiratory status continues to improve clinically. Patient is not yet to baseline. Complaining of itching this morning. No correlation of itching with administration of medications. Objective Vital Signs Date Time Temp Pulse Resp B/P (MAP) Pulse Ox O2 Delivery O2 Flow Rate FiO2 02/14/17 08:00 98.4 70 20 109/51 (70) 95 02/14/17 07:49 96 Nasal Cannula 4.00 02/14/17 04:00 96.0 86 18 121/65 (83) 94 02/14/17 00:00 97.8 70 20 121/55 (77) 96 02/13/17 23:00 69 02/13/17 19:49 97.6 70 16 108/52 (70) 95 02/13/17 19:16 94 Nasal Cannula 4.00 02/13/17 19:00 96 Nasal Cannula 3.00 02/13/17 16:13 94 Nasal Cannula 3.00 02/13/17 12:44 96.7 74 18 115/51 (72) 96 I/O 02/13/17 02/13/17 02/13/17 02/14/17 02/14/17 02/14/17 07:00 15:00 23:00 07:00 15:00 23:00 Intake Total 240 ml Balance 240 ml Intake Oral 240 ml # Voids 2 Result Diagram: 02/13/1712 02/13/17 0712 Objective Remarks GENERAL: NAD, A&Ox3 HEAD: Normocephalic. NECK: Supple, trachea midline. No lymphadenopathy. EYES: No scleral icterus. No injection or drainage. CARDIOVASCULAR: Regular rate and rhythm without murmurs, gallops, or rubs. RESPIRATORY: Breath sounds equal bilaterally. No accessory muscle use. GASTROINTESTINAL: Abdomen soft, non-tender, nondistended. MUSCULOSKELETAL: No cyanosis, or edema. SKIN: Warm and dry. NEURO: No focal neurological deficitis. A/P Problem List: (1) Pneumonia ICD Code: J18.9 - Pneumonia, unspecified organism Status: Acute (2) Acute exacerbation of CHF (congestive heart failure) ICD Code: I50.9 - Heart failure, unspecified Status: Acute (3) Sepsis ICD Code: A41.9 - Sepsis, unspecified organism Status: Acute (4) Hypoxia ICD Code: R09.02 - Hypoxemia Status: Acute Assessment and Plan Assessment and Plan 76-year-old male admitted secondary to acute respiratory failure with hypoxia, related to pneumonia and COPD/CHF exacerbations. Continue antibiotics. Fluid balance is improved. Etiology of hypoxia appears secondary to inflammation from pneumonia. Continue antibiotics. Treat urticaria. Sepsis Resolved Acute urticaria Reaction started with start of cefepime Benadryl as needed Cefepime discontinued Acute respiratory failure COPD exacerbation CHF exacerbation Suspected pneumonia Patient able to be weaned off BiPAP now MedSurg status now Continue Levaquin Cefepime stopped secondary to allergic reaction Continue Lasix Continue IV Solu-Medrol Continue duo nebs Continue oxygen as needed CPAP at night (baseline) Pulmonology following Infectious disease following Cardiology following Possible bacteremia One of the patient's culture has grown Pantoea [employer] Cefepime had to be held secondary to allergic reaction Infectious disease physician following Obstructive sleep apnea Continue CPAP Atrial fibrillation Pacemaker dependent Continue Toprol-XL Continue diltiazem ER Continue Coumadin Follow INR DVT prophylaxis Patient on Coumadin Problem Qualifiers (1) Pneumonia: Qualified Codes: J18.9 - Pneumonia, unspecified organism (2) Acute exacerbation of CHF (congestive heart failure): Qualified Codes: I50.9 - Heart failure, unspecified (3) Sepsis: Qualified Codes: A41.9 - Sepsis, unspecified organism Derrek Ortiz MD Feb 14, 2017 09:40
[2017-02-14] MEDS ORDERED: diphenhydrAMINE HCL 50 MG/ML VIAL IM ONE (09:45)
--- NOTE | 2017-02-14 14:15 | ECHRPT ---
Indication: Endocarditis and heart valve disorders in diseases classified elsewhere CONCLUSIONS Limited echo for vegetation: LVEF appears grossly presreved No obvious vegetation seen, but technically difficult study. BP: / HR: 73 Rhythm: Other Technical Quality:Poor FINDINGS LEFT VENTRICLE Normal left ventricular size and wall thickness. The left ventricular systolic function is normal wi th an estimated ejection fraction in the range of 60-65%. Left ventricular diastolic function parameters a re normal. RIGHT VENTRICLE Normal right ventricular size and systolic function. LEFT ATRIUM The left atrial size is normal. RIGHT ATRIUM The right atrial size is normal. ATRIAL SEPTUM Normal atrial septal thickness without atrial level shunting by limited color doppler interrogation. AORTA The aortic root and proximal ascending aorta are normal in size on limited imaging. MITRAL VALVE Structurally normal mitral valve. No mitral valve stenosis or regurgitation. AORTIC VALVE Trileaflet aortic valve. No aortic valve stenosis or regurgitation. TRICUSPID VALVE Structurally normal tricuspid valve. No tricuspid valve stenosis or regurgitation. PULMONARY VALVE The pulmonary valve is not well visualized. VESSELS The inferior vena cava is normal in size. PERICARDIUM No pericardial effusion. Marin Merida MD (Electronically Signed) Final Date:14 February 2017 14:15
[2017-02-14] MEDS ORDERED: WARFARIN SOD 1 MG TAB PO SCH (16:00)
[2017-02-14] MEDS: WARFARIN SOD 6 MG TAB PO SCH (17:27)
[2017-02-14] MEDS: METOPROLOL SUCCINATE 50 MG EXTENDED RELEASE TAB PO SCH (21:12)
[2017-02-14] MEDS: LEVOFLOXACIN 500 MG TAB PO SCH (21:12)
[2017-02-15] VITALS (10 sets, daily range): BP systolic 116–174; BP diastolic 55–85; PULSE 69–82; RESP 15–22; TEMP 96.5–98; O2SAT 89–98
[2017-02-15] MEDS: RESP: ALBUTEROL 2.5 MG/IPRATROPIUM 0.5 MG NEB (SCH) INH ×3 (01:41→08:08)
[2017-02-15] MEDS: methylPREDNISolone SOD SUCC 40 MG/1 ML VIAL IV PUSH SCH ×3 (01:47→21:05)
[2017-02-15] MEDS: guaiFENesin/CODEINE SYRUP 200 MG/20 MG/10 ML CUP PO PRN ×5 (01:50→21:12)
[2017-02-15] MEDS: CHLORHEXIDINE GLUCONATE 2 % 1 PACK (2 CLOTHS) TOP SCH (04:00)
[2017-02-15] MEDS: diphenhydrAMINE HCL 50 MG/ML VIAL IV PUSH PRN ×3 (04:57→12:26)
[2017-02-15 08:33] LABS: INTERNATIONAL NORMALIZED RATIO 2.4 RATIO; PROTHROMBIN TIME - PATIENT 27.9 SEC (9.8-11.6)
--- NOTE | 2017-02-15 08:40 | RADRPT ---
EXAM DATE/TIME: 02/15/2017 08:03 [facility] COMPARISON: CT THORAX W/O CONTRAST, February 13, 2017, 9:47. CHEST SINGLE AP, February 11, 2017, 10:24. INDICATIONS : Short of breath, cough MEDICAL HISTORY : Chronic obstructive pulmonary disease. Congestive heart failure. Hypertension. SURGICAL HISTORY : Pacemaker. ENCOUNTER: Subsequent ACUITY: 1 week PAIN SCORE: 0/10 LOCATION: Bilateral chest FINDINGS: Single view of the chest again demonstrates moderate cardiomegaly with diffuse cephalization of pulmo nary vasculature and indistinctness of the interstitium. Dual-lead pacemaker identified. Multiple ove rlying cardiac leads. The pleural effusions seen the comparison CT are not visible on this exam. CONCLUSION: Stable appearance of congestive heart failure and pulmonary edema. The pleural effusions seen on [facility] CT are not visible on this exam. Linda Bonilla MD on February 15, 2017 at 8:37 Board Certified Radiologist. This report was verified electronically.
[2017-02-15] MEDS: DOCUSATE SODIUM 50 MG/SENNA 8.6 MG TAB PO SCH ×2 (09:00→21:08)
[2017-02-15] MEDS: DILTIAZEM-CD 240 MG CAP ER PO SCH (09:23)
[2017-02-15] MEDS: PANTOPRAZOLE SOD 40 MG DELAYED RELEASE TAB PO SCH (09:23)
[2017-02-15] MEDS: SPIRONOLACTONE 25 MG TAB PO SCH (09:23)
[2017-02-15] MEDS: FUROSEMIDE 40 MG TAB PO SCH (09:23)
[2017-02-15] MEDS: INSULIN ASPART SUPPLEMENTAL SCALE SQ SCH ×4 (09:30→21:04)
[2017-02-15] MEDS: SODIUM CHLORIDE 0.9% FLUSH 10 ML FLUSH IV FLUSH SCH ×2 (09:30→21:04)
--- NOTE | 2017-02-15 10:39 | HHI.PR ---
Subjective Remarks Respiratory status on improved compared to previous day. Patient complains of coughing. A repeat chest x-ray shows persistent pulmonary edema. Objective Vital Signs Date Time Temp Pulse Resp B/P (MAP) Pulse Ox O2 Delivery O2 Flow Rate FiO2 02/15/17 08:11 93 Nasal Cannula 4.00 02/15/17 04:00 96.6 76 22 135/85 (102) 98 02/15/17 00:00 98.0 82 20 116/55 (75) 92 02/14/17 23:00 72 02/14/17 22:46 96 Nasal Cannula 4.00 02/14/17 20:00 98.0 74 22 137/71 (93) 96 02/14/17 20:00 96 Nasal Cannula 4.00 02/14/17 16:00 97.6 88 107/50 (69) 97 02/14/17 16:00 15 02/14/17 15:00 70 02/14/17 13:49 97.5 71 15 130/50 (76) 97 I/O 02/14/17 02/14/17 02/14/17 02/15/17 02/15/17 02/15/17 07:00 15:00 23:00 07:00 15:00 23:00 Intake Total 240 ml 2530 ml 480 ml Output Total 1200 ml Balance 240 ml 1330 ml 480 ml Intake Oral 240 ml 2530 ml 480 ml Output Urine Total 1200 ml # Voids 2 11 2 # Bowel Movements 2 1 Result Diagram: 02/13/17 0712 02/15/17 0730 Objective Remarks GENERAL: NAD, A&Ox3 HEAD: Normocephalic. NECK: Supple, trachea midline. No lymphadenopathy. EYES: No scleral icterus. No injection or drainage. CARDIOVASCULAR: Regular rate and rhythm without murmurs, gallops, or rubs. RESPIRATORY: Breath sounds equal bilaterally. No accessory muscle use. GASTROINTESTINAL: Abdomen soft, non-tender, nondistended. MUSCULOSKELETAL: No cyanosis, or edema. SKIN: Warm and dry. NEURO: No focal neurological deficitis. A/P Problem List: (1) Pneumonia ICD Code: J18.9 - Pneumonia, unspecified organism Status: Acute (2) Acute exacerbation of CHF (congestive heart failure) ICD Code: I50.9 - Heart failure, unspecified Status: Acute (3) Sepsis ICD Code: A41.9 - Sepsis, unspecified organism Status: Acute (4) Hypoxia ICD Code: R09.02 - Hypoxemia Status: Acute Assessment and Plan Assessment and Plan 76-year-old male admitted secondary to acute respiratory failure with hypoxia, related to pneumonia and COPD/CHF exacerbations. Continue antibiotics. Lasix increased to IV dosing, 40 mg daily, repeat dosings at noon as needed. Continue duo nebs on an as-needed basis. Robitussin AC is changed to every 4 hours. Sepsis Resolved Acute urticaria Reaction started with start of cefepime Benadryl as needed Cefepime discontinued Acute respiratory failure COPD exacerbation CHF exacerbation Suspected pneumonia Patient able to be weaned off BiPAP now MedSurg status now Continue Levaquin Cefepime stopped secondary to allergic reaction Continue Lasix Continue IV Solu-Medrol Continue duo nebs Continue oxygen as needed CPAP at night (baseline) Pulmonology following Infectious disease following Cardiology following Possible bacteremia One of the patient's culture has grown Pantoe[employer] Cefepime had to be held secondary to allergic reaction Infectious disease physician following Obstructive sleep apnea Continue CPAP Atrial fibrillation Pacemaker dependent Continue Toprol-XL Continue diltiazem ER Continue Coumadin Follow INR DVT prophylaxis Patient on Coumadin Problem Qualifiers (1) Pneumonia: Qualified Codes: J18.9 - Pneumonia, unspecified organism (2) Acute exacerbation of CHF (congestive heart failure): Qualified Codes: I50.9 - Heart failure, unspecified (3) Sepsis: Qualified Codes: A41.9 - Sepsis, unspecified organism Derrek Ortiz MD Feb 15, 2017 10:39
[2017-02-15] MEDS: RESP: ALBUTEROL 2.5 MG/IPRATROPIUM 0.5 MG NEB (PRN) NEB ×3 (11:27→20:16)
[2017-02-15] MEDS ORDERED: FUROSEMIDE 40 MG/4 ML VIAL IV PUSH ONE (12:00)
[2017-02-15] MEDS: WARFARIN SOD 6 MG TAB PO SCH (16:54)
[2017-02-15] MEDS: METOPROLOL SUCCINATE 50 MG EXTENDED RELEASE TAB PO SCH (21:08)
[2017-02-15] MEDS: LEVOFLOXACIN 500 MG TAB PO SCH (21:08)
[2017-02-16] VITALS (9 sets, daily range): BP systolic 109–143; BP diastolic 55–85; PULSE 70–77; RESP 18–20; TEMP 96.2–97.8; O2SAT 92–98
[2017-02-16] MEDS: guaiFENesin/CODEINE SYRUP 200 MG/20 MG/10 ML CUP PO PRN ×5 (03:16→23:23)
[2017-02-16] MEDS: CHLORHEXIDINE GLUCONATE 2 % 1 PACK (2 CLOTHS) TOP SCH (03:18)
[2017-02-16 06:34] LABS: AUTOMATED NEUTROPHIL # 10.9 TH/MM3 (1.8-7.7); BASOPHIL % 0.1 % (0.0-2.0); EOSINOPHIL % 0.1 % (0.0-4.0); HEMATOCRIT 34.2 % (39.0-51.0); HEMO FLAGS DIFF FINAL; LYMPH % 5.3 % (9.0-44.0); LYMPHOCYTE # 0.6 TH/MM3 (1.0-4.8); MEAN CELL VOLUME 90.7 FL (80.0-100.0); MEAN CORPUSCULAR HEMOGLOBIN 29.3 PG (27.0-34.0); MEAN CORPUSCULAR HGB CONC 32.3 % (32.0-36.0); MONO % 3.6 % (0.0-8.0); NEUT % 90.9 % (16.0-70.0); PLATELET COUNT 254 TH/MM3 (150-450); RED BLOOD COUNT 3.77 MIL/MM3 (4.50-5.90); RED CELL DISTRIBUTION WIDTH 13.9 % (11.6-17.2); WHITE BLOOD COUNT 11.9 TH/MM3 (4.0-11.0)
[2017-02-16 06:42] LABS: CHLORIDE 95 MEQ/L (98-107); POTASSIUM 4.2 MEQ/L (3.5-5.1); SODIUM (NA) 135 MEQ/L (136-145)
[2017-02-16 06:44] LABS: INTERNATIONAL NORMALIZED RATIO 3.1 RATIO; PROTHROMBIN TIME - PATIENT 36.2 SEC (9.8-11.6)
[2017-02-16 06:48] LABS: ANION GAP 6 MEQ/L (5-15); BICARBONATE 34.2 MEQ/L (21.0-32.0); BLOOD UREA NITROGEN 39 MG/DL (7-18)
[2017-02-16 06:51] LABS: ALT (GPT) 23 U/L (12-78); AST (GOT) 13 U/L (15-37); GLOMERULAR FILTRATION RATE 74 ML/MIN (>89)
[2017-02-16 06:53] LABS: TOTAL BILIRUBIN ADULT 0.4 MG/DL (0.2-1.0)
[2017-02-16 06:54] LABS: ALKALINE PHOSPHATASE 83 U/L (45-117)
--- NOTE | 2017-02-16 09:15 | HHI.PR ---
Subjective Remarks Oxygen saturation has improved. This may be secondary to diuresis. Patient still complains of cough. Objective Vital Signs Date Time Temp Pulse Resp B/P (MAP) Pulse Ox O2 Delivery O2 Flow Rate FiO2 02/16/17 04:00 96.4 76 20 143/85 (104) 98 02/16/17 00:00 96.2 71 20 143/72 (95) 98 02/15/17 20:18 94 Nasal Cannula 4.00 02/15/17 20:00 94 Nasal Cannula 3.00 02/15/17 20:00 69 02/15/17 20:00 96.5 74 20 138/71 (93) 94 02/15/17 16:00 96.9 76 18 174/64 (100) 89 02/15/17 15:00 69 02/15/17 12:00 97.6 71 15 126/61 (82) 93 I/O 02/15/17 02/15/17 02/15/17 02/16/17 02/16/17 02/16/17 07:00 15:00 23:00 07:00 15:00 23:00 Intake Total 480 ml 1130 ml Balance 480 ml 1130 ml Intake Oral 480 ml 1130 ml # Voids 2 7 # Bowel Movements 1 0 Result Diagram: 02/16/17 0502/16/17 0530 Objective Remarks GENERAL: NAD, A&Ox3 HEAD: Normocephalic. NECK: Supple, trachea midline. No lymphadenopathy. EYES: No scleral icterus. No injection or drainage. CARDIOVASCULAR: Regular rate and rhythm without murmurs, gallops, or rubs. RESPIRATORY: Breath sounds equal bilaterally. No accessory muscle use. GASTROINTESTINAL: Abdomen soft, non-tender, nondistended. MUSCULOSKELETAL: No cyanosis, or edema. SKIN: Warm and dry. NEURO: No focal neurological deficitis. A/P Problem List: (1) Pneumonia ICD Code: J18.9 - Pneumonia, unspecified organism Status: Acute (2) Acute exacerbation of CHF (congestive heart failure) ICD Code: I50.9 - Heart failure, unspecified Status: Acute (3) Sepsis ICD Code: A41.9 - Sepsis, unspecified organism Status: Acute (4) Hypoxia ICD Code: R09.02 - Hypoxemia Status: Acute Assessment and Plan Assessment and Plan 76-year-old male admitted secondary to acute respiratory failure with hypoxia, related to pneumonia and COPD/CHF exacerbations. Continue antibiotics. Continue IV Lasix 40 mg daily. Repeat dosing will be provided today in the afternoon. Continue to monitor for improvement in cough. Sepsis Resolved Acute urticaria Reaction started with start of cefepime Benadryl as needed Cefepime discontinued Acute respiratory failure COPD exacerbation CHF exacerbation Suspected pneumonia Patient able to be weaned off BiPAP now MedSurg status now Continue Levaquin Cefepime stopped secondary to allergic reaction Continue Lasix Continue IV Solu-Medrol Continue duo nebs Continue oxygen as needed CPAP at night (baseline) Pulmonology following Infectious disease following Cardiology following Possible bacteremia One of the patient's culture has grown Pant[employer] Cefepime had to be held secondary to allergic reaction Infectious disease physician following Obstructive sleep apnea Continue CPAP Atrial fibrillation Pacemaker dependent Continue Toprol-XL Continue diltiazem ER Continue Coumadin Follow INR DVT prophylaxis Patient on Coumadin Problem Qualifiers (1) Pneumonia: Qualified Codes: J18.9 - Pneumonia, unspecified organism (2) Acute exacerbation of CHF (congestive heart failure): Qualified Codes: I50.9 - Heart failure, unspecified (3) Sepsis: Qualified Codes: A41.9 - Sepsis, unspecified organism Derrek Ortiz MD Feb 16, 2017 09:15
[2017-02-16] MEDS: SODIUM CHLORIDE 0.9% FLUSH 10 ML FLUSH IV FLUSH SCH ×2 (09:22→21:39)
[2017-02-16] MEDS: INSULIN ASPART SUPPLEMENTAL SCALE SQ SCH ×4 (09:22→21:30)
[2017-02-16] MEDS: PANTOPRAZOLE SOD 40 MG DELAYED RELEASE TAB PO SCH (09:23)
[2017-02-16] MEDS: methylPREDNISolone SOD SUCC 40 MG/1 ML VIAL IV PUSH SCH ×2 (09:23→21:15)
[2017-02-16] MEDS: DOCUSATE SODIUM 50 MG/SENNA 8.6 MG TAB PO SCH ×2 (09:23→21:18)
[2017-02-16] MEDS: FUROSEMIDE 40 MG/4 ML VIAL IV PUSH SCH (09:23)
[2017-02-16] MEDS: DILTIAZEM-CD 240 MG CAP ER PO SCH (09:23)
[2017-02-16] MEDS: SPIRONOLACTONE 25 MG TAB PO SCH (09:23)
[2017-02-16] MEDS: RESP: ALBUTEROL 2.5 MG/IPRATROPIUM 0.5 MG NEB (PRN) NEB ×3 (11:54→20:27)
[2017-02-16] MEDS: diphenhydrAMINE HCL 50 MG/ML VIAL IV PUSH PRN (11:56)
[2017-02-16] MEDS ORDERED: FUROSEMIDE 40 MG/4 ML VIAL IV PUSH ONE (13:00)
[2017-02-16] MEDS: WARFARIN SOD 6 MG TAB PO SCH (16:00)
[2017-02-16] MEDS: METOPROLOL SUCCINATE 50 MG EXTENDED RELEASE TAB PO SCH (21:15)
[2017-02-16] MEDS: LEVOFLOXACIN 500 MG TAB PO SCH (21:15)
[2017-02-17] VITALS: BP 133/67; PULSE 68; RESP 19; TEMP 97.5; O2SAT 94
[2017-02-17 04:00] VITALS: BP 136/63; PULSE 67; RESP 18; TEMP 98.2; O2SAT 94
[2017-02-17] MEDS: CHLORHEXIDINE GLUCONATE 2 % 1 PACK (2 CLOTHS) TOP SCH (04:00)
[2017-02-17] MEDS: guaiFENesin/CODEINE SYRUP 200 MG/20 MG/10 ML CUP PO PRN ×2 (04:16→15:22)
[2017-02-17 07:39] LABS: INTERNATIONAL NORMALIZED RATIO 3.4 RATIO; PROTHROMBIN TIME - PATIENT 39.5 SEC (9.8-11.6)
[2017-02-17 08:00] VITALS: BP 119/78; PULSE 77; RESP 16; TEMP 98.1; O2SAT 96
[2017-02-17] MEDS: FUROSEMIDE 40 MG/4 ML VIAL IV PUSH SCH ×2 (09:00→09:58)
[2017-02-17] MEDS ORDERED: predniSONE 20 MG TAB PO SCH (09:00)
[2017-02-17] MEDS: SODIUM CHLORIDE 0.9% FLUSH 10 ML FLUSH IV FLUSH SCH (09:57)
[2017-02-17] MEDS: INSULIN ASPART SUPPLEMENTAL SCALE SQ SCH ×2 (09:57→13:03)
[2017-02-17] MEDS: SPIRONOLACTONE 25 MG TAB PO SCH (09:58)
[2017-02-17] MEDS: DILTIAZEM-CD 240 MG CAP ER PO SCH (09:58)
[2017-02-17] MEDS: PANTOPRAZOLE SOD 40 MG DELAYED RELEASE TAB PO SCH (09:58)
[2017-02-17] MEDS: DOCUSATE SODIUM 50 MG/SENNA 8.6 MG TAB PO SCH (09:59)
[2017-02-17] MEDS ORDERED: LEVA500T20 PO (10:06)
[2017-02-17] MEDS ORDERED: WARF-23 PO (10:06)
[2017-02-17] MEDS ORDERED: OXYGEN NAS.CANULA (10:07)
[2017-02-17] MEDS ORDERED: guaiFEN-COD 200-20 MG/10ML LIQ PO (10:07)
[2017-02-17] MEDS ORDERED: PRED5PAK PO (10:07)
[2017-02-17] MEDS ORDERED: LACTTAB8 PO (10:07)
--- NOTE | 2017-02-17 10:09 | HHI.FF ---
Face to Face Verification Diagnosis: (1) Hypoxia (2) Pneumonia (3) Acute exacerbation of CHF (congestive heart failure) (4) COPD exacerbation Physical Therapy Order: Evaluate and Treat Home Health Nursing Order: Signs/symptoms of disease process Oxygen administration education Instructions: Will need an INR in 3 to 4 days, result to PCP (Dr. Giuseppe Velazquez) I have seen patient Michael Youngblood on 02/17/17. My clinical findings support the need for the requested home health care services because: Ltd mobility - disease progression Patient has SOB Deconditioned w/ increased weakness Limited ability to care for self High risk of falls Infection w/ risk of complications I certify that my clinical findings support that this patient is homebound because: Hx COPD- exertion dyspnea/weakness Unsteady gait/balance Unsafe to leave home unassisted Unable to use public transportation Poor cardiac reserve Derrek Ortiz MD Feb 17, 2017 10:09
--- NOTE | 2017-02-17 10:12 | HHI.DS ---
Discharge Summary Admission Date Feb 08, 2017 at 15:51 Discharge Date: Feb 17, 2017 Admitting Diagnosis Hypoxia, CHF exacerbation, Sepsis (1) COPD exacerbation ICD Code: J44.1 - Chronic obstructive pulmonary disease with (acute) exacerbation Diagnosis: Principal Status: Acute (2) Hypoxia ICD Code: R09.02 - Hypoxemia Diagnosis: Principal Status: Acute (3) Septicemia, Gram-negative ICD Code: A41.50 - Gram-negative sepsis, unspecified Diagnosis: Principal (4) Acute exacerbation of CHF (congestive heart failure) ICD Code: I50.9 - Heart failure, unspecified Diagnosis: Principal Status: Acute (5) Pneumonia ICD Code: J18.9 - Pneumonia, unspecified organism Diagnosis: Principal Status: Acute Procedures None Brief History - From Admission This is a 76-year-old male with medical history significant for CAD, AAA, A. fib , hypertension, cardiac pacemaker, CHF, COPD, sleep apnea, arthritis presented to [facility] with complaints of shortness of breath. Reports that he uses 4 L of oxygen nasal cannula at nighttime, reports that for the past 5-6 days, he has been feeling short of breath at rest as well as on exertion. Patient reports that he has been wheezing, has had a cough. Denies any fevers or chills. Patient reports that he can't seem to catch his breath. Denies any sick contacts at home. Reports that he does take coumadin as he has a pacemaker and does have history of atrial fibrillation. ABGs were drawn revealed a PaO2 of 45. Critical care medicine was consulted. History PFSH Past Medical History Hx Anticoagulant Therapy: Yes AAA: Yes (AWAITING SURGICAL OPINION) Arthritis: Yes Asthma: No Atrial Fibrillation: Yes Autoimmune Disease: No Heart Rhythm Problems: Yes (PACER, a- fib) Cancer: Yes (SKIN, 30 years ago.) Cardiovascular Problems: Yes High Cholesterol: No Chemotherapy: No Chest Pain: Yes Congestive Heart Failure: Yes COPD: Yes Cerebrovascular Accident: No Coronary Artery Disease: Yes Diabetes: Yes Patient Takes Glucophage: No Diminished Hearing: Yes Endocrine: No Gastrointestinal Disorders: Yes GERD: No Genitourinary: Yes (URINARY STRICTION YEARS AGO) Headaches: Yes Hiatal Hernia: Yes (YEARS AGO) Hypertension: Yes Immune Disorder: No Implanted Vascular Access Dvce: Yes Kidney Stones: No Musculoskeletal: Yes Neurologic: No Psychiatric: No Reproductive: No Respiratory: Yes (COPD) Immunizations Current: Yes Migraines: No Radiation Therapy: No Renal Failure: No Seizures: No Sleep Apnea: Yes Thyroid Disease: No Ulcer: No Tetanus Vaccination: < 5 Years Influenza Vaccination: Yes Past Surgical History Abdominal Surgery: Yes Appendectomy: Yes Body Medical Devices: PACEMAKER Cardiac Surgery: Yes (PACEMAKER) Cholecystectomy: Yes Ear Surgery: No Endocrine Surgery: No 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) Genitourinary Surgery: No Gynecologic Surgery: No Oral Surgery: No Pacemaker: Yes Thoracic Surgery: Yes Tonsillectomy: Yes (SINUS AND UVULECTOMY) Other Surgery: Yes (RIGHT/LEFT TRIGGER FINGER) Social History Alcohol Use: Yes (occ.) Tobacco Use: No (quit approx 1989- smoked 2 ppd for 30+ yrs) Substance Use: No Allergies-Medications Allergies-Medications (Allergen,Severity, Reaction): Coded Allergies: No Known Allergies (Unverified , 02/08/17) Reported Meds & Prescriptions Reported Meds & Active Scripts Active Reported Warfarin 5 Mg Tab 5 Mg PO DAILY Cartia Xt (Diltiazem ER 24 HR) 120 Mg Caper 240 Mg PO DAILY Warfarin 1 Mg Tab 1 Mg PO DAILY Oxycodone (Oxycodone HCl) 10 Mg Tab 10 Mg PO HS PRN Modafinil 100 Mg Tab 100 Mg PO DAILY Toprol XL (Metoprolol Succinate) 50 Mg Tab 50 Mg PO HS Spironolactone 25 Mg Tab 25 Mg PO DAILY Lasix (Furosemide) 40 Mg Tab 40 Mg PO DAILY Citalopram (Citalopram Hydrobromide) 40 Mg Tab 40 Mg PO DAILY Ventolin Hfa 18 GM Inh (Albuterol Sulfate) 90 Mcg/Act Aer 2 Puff INH Q4-6H PRN ROS Review of Systems General / Constitutional: No: Fever Eyes: No: Visual changes HENT: No: Headaches Cardiovascular: No: Chest Pain or Discomfort Respiratory: Positive: Cough, Shortness of Breath, Wheezing Gastrointestinal: No: Abdominal Pain Genitourinary: No: Dysuria Musculoskeletal: No: Pain Skin: No Rash Neurologic: No: Weakness Psychiatric: No: Depression Endocrine: No: Polydipsia Hematologic/Lymphatic: No: Easy Bruising CBC/BMP: 02/16/17 0530 02/17/17 0535 Significant Findings Laboratory Tests Test 02/15/17 07:30 02/16/17 05:30 02/17/17 05:35 Prothrombin Time 27.9 SEC (9.8-11.6) 36.2 SEC (9.8-11.6) 39.5 SEC (9.8-11.6) Estimat Glomerular Filtration Rate 75 ML/MIN (>89) 74 ML/MIN (>89) 74 ML/MIN (>89) White Blood Count 11.9 TH/MM3 (4.0-11.0) Red Blood Count 3.77 MIL/MM3 (4.50-5.90) Hemoglobin 11.0 GM/DL (13.0-17.0) Hematocrit 34.2 % (39.0-51.0) Neutrophils (%) (Auto) 90.9 % (16.0-70.0) Lymphocytes (%) (Auto) 5.3 % (9.0-44.0) Neutrophils # (Auto) 10.9 TH/MM3 (1.8-7.7) Lymphocytes # (Auto) 0.6 TH/MM3 (1.0-4.8) Blood Urea Nitrogen 39 MG/DL (7-18) Random Glucose 256 MG/DL (74-106) Total Protein 6.2 GM/DL (6.4-8.2) Albumin 2.5 GM/DL (3.4-5.0) Aspartate Amino Transf (AST/SGOT) 13 U/L (15-37) Sodium Level 135 MEQ/L (136-145) Chloride Level 95 MEQ/L (98-107) Carbon Dioxide Level 34.2 MEQ/L (21.0-32.0) PE at Discharge GENERAL: Well-nourished, well-developed obese CM patient. SKIN: Warm and dry. HEAD: Normocephalic. EYES: No scleral icterus. No injection or drainage. NECK: Supple, trachea midline. No JVD or lymphadenopathy. CARDIOVASCULAR: irregular rate and rhythm without murmurs, gallops, or rubs. RESPIRATORY: Breath sounds equal but coarse bilaterally. No accessory muscle use. GASTROINTESTINAL: Abdomen soft, non-tender, nondistended. EXTREMITIES: trace pedal edema. NEUROLOGICAL: Awake, alert, and oriented x 3. Non-focal. Hospital Course Mr. Youngblood is a 76-year-old male. He was admitted secondary to hypoxia and CHF exacerbation this was found to be secondary to pneumonia. He was treated with antibiotics and has had slow improvement. At baseline he has a CHF and COPD which complicates his resolution. There may have been some pre- existing hypoxia is patient reports that at home his oxygen saturations have frequently drop into the lower 80s whenever he exerted himself short of breath. At this point he has clinical improvement in his cough. He is breathing better. However, he has chronic hypoxia and has not been male to be weaned off oxygen. Previously he had only been using oxygen at night with the CPAP machine. At this point is recommended to use oxygen during the day. He will continue Levaquin as a by mouth antibiotic to continue for 5 more days at time of discharge. She also needs continuation of physical therapy and a home health nurse to educate regarding oxygen and to help and follow his INR which at this point is hypertherapeutic. He has no active bleeds. Medically he is stable for discharge home today with oxygen. Pt Condition on Discharge: Stable Discharge Disposition: Disch w/ Home Health Serv Discharge Time: > 30 minutes Discharge Instructions DIET: Follow Instructions for: As Tolerated, No Restrictions Activities you can perform: Regular-No Restrictions Follow up Referrals: PCP Follow-up - 2 Weeks New Medications: Lactobacillus Acidophilus (Lactobacillus Acidophilus) 1 Billion Cell Tab 1 TAB PO TIDAC for Nutritional Supplement, #30 TAB 0 Refills Oxygen (O2) (Oxygen (O2)) Inha LITER CHARLY.CANULA CONTINUOUS for Prevent Hypoxemia, #1 Oxygen Concentrator Portable Gaseous 2 L/min via Nasal Canula Continuous For 99 months Prednisone (21) 5 mg tab Dose Pack (Prednisone (21) 5 mg tab Dose Pack) 5 Mg Dspk 5 MG PO DIRECTED for Inflammation, #1 DSPK 0 Refills Levofloxacin (Levaquin) 500 Mg Tablet 500 MG PO DAILY@2100 for Infection, #5 TAB [guaiFEN-COD 200-20 MG/10ML LIQ] () 10 ML SYRP 10 ML PO Q4H PRN for cough, #200 ML Changed Medications: Warfarin (Warfarin) 5 Mg Tab 5 MG PO DAILY for Blood Clot Prevention, #30 TAB 0 Refills (Medication details modified) Resume this at 5mg daily, AFTER INR decreases to thereputic range. Continued Medications: Albuterol 18 GM Inh (Ventolin Hfa 18 GM Inh) 90 Mcg/Act Aer 2 PUFF INH Q4-6H PRN for SHORTNESS OF BREATH, #1 INHALER 0 Refills Diltiazem ER 24 HR (Cartia Xt) 120 Mg Caper 240 MG PO DAILY, #30 CAP 0 Refills Furosemide (Lasix) 40 Mg Tab 40 MG PO DAILY, #30 TAB 0 Refills Metoprolol Succinate ER 24 HR (Toprol XL) 50 Mg Tab 50 MG PO HS, #30 TAB 0 Refills Oxycodone (Oxycodone) 10 Mg Tab 10 MG PO HS PRN for PAIN, TAB 0 Refills Spironolactone (Spironolactone) 25 Mg Tab 25 MG PO DAILY, #30 TAB 0 Refills Discontinued Medications: Citalopram (Citalopram) 40 Mg Tab 40 MG PO DAILY for Control Depression, #30 TAB 0 Refills Modafinil (Modafinil) 100 Mg Tab 100 MG PO DAILY for Manage Daytime Sleepiness, TAB 0 Refills Warfarin (Warfarin) 1 Mg Tab 1 MG PO DAILY for Blood Clot Prevention, #30 TAB 0 Refills Derrek Ortiz MD Feb 17, 2017 10:12
[2017-02-17] MEDS ORDERED: diphenhydrAMINE HCL 50 MG CAP PO ONE (12:00)
[2017-02-17 13:43] VITALS: PULSE 69
[2017-02-17] MEDS ORDERED: RESP: ALBUTEROL 2.5 MG/IPRATROPIUM 0.5 MG NEB (SCH) NEB (14:00)
== END 2017-02-17 16:28 | disposition home health service (06) | DRG 871 ==
LOC: PHED 14:14 → PHEDA 15:51 → PHICU 17:20 → PH5A 02-12 17:04
PROVIDERS: ADMIT Hospitalist; ATTEND Hospitalist
PROC: 5A09357 Assistance with Respiratory Ventilation, Less than 24 Consecutive Hours, Continuous Positive Airway Pressure (ICD-10-PCS; principal; 2017-02-08)
DX: A41.50 Gram-negative sepsis, unspecified (principal); I50.33 Acute on chronic diastolic (congestive) heart failure; J96.21 Acute and chronic respiratory failure with hypoxia; J18.9 Pneumonia, unspecified organism; E87.2 Acidosis; I11.0 Hypertensive heart disease with heart failure; I48.2 Chronic atrial fibrillation; Z99.81 Dependence on supplemental oxygen; J44.0 Chronic obstructive pulmonary disease with (acute) lower respiratory infection; J44.1 Chronic obstructive pulmonary disease with (acute) exacerbation; I48.91 Unspecified atrial fibrillation; G47.33 Obstructive sleep apnea (adult) (pediatric); I25.10 Atherosclerotic heart disease of native coronary artery without angina pectoris; E11.9 Type 2 diabetes mellitus without complications; M19.90 Unspecified osteoarthritis, unspecified site; I71.4 Abdominal aortic aneurysm, without rupture; L50.0 Allergic urticaria; T36.1X5A Adverse effect of cephalosporins and other beta-lactam antibiotics, initial encounter; H91.90 Unspecified hearing loss, unspecified ear; Z68.37 Body mass index [BMI] 37.0-37.9, adult; Z82.49 Family history of ischemic heart disease and other diseases of the circulatory system; Z79.01 Long term (current) use of anticoagulants; Z83.3 Family history of diabetes mellitus; Z85.828 Personal history of other malignant neoplasm of skin; Z86.718 Personal history of other venous thrombosis and embolism; Z87.891 Personal history of nicotine dependence; Z95.0 Presence of cardiac pacemaker; R53.83 Other fatigue; E66.01 Morbid (severe) obesity due to excess calories
CPT/HCPCS: 36415; 36600; 71010; 71250; 74177; 80048; 80053; 80202; 81001; 82550; 82565; 82805; 82948; 83605; 83690; 83735; 83880; 84100; 84439; 84443; 84484; 85007; 85025; 85027; 85610; 85730; 87040; 87186; 87205; 87641; 87804; 93005; 93308; 94003; 94640; 94664; 96374; 96375; C9113; J0456; J0692; J1200; J1815; J1940; J1956; J2543; J2920; J2930; J3370; J7040; J7050; J7512; Q0163; Q9963; Q9967

== ENCOUNTER → 2017-03-30 | Outpatient (CLI) | payer MEDICARE ==
[~2017-03-30] MED LIST changes: +CART120C PO; -CITA40TA4 PO; -COUM6TAB PO; +LACTTAB8 PO; +LEVA500T33 PO; -MODA100T9 PO; +OXYGEN NAS.CANULA; +PRED5PAK PO; -ULTR50TA5 PO; +WARF-23 PO; +guaiFEN-COD 200-20 MG/10ML LIQ PO
[2017-03-30 12:26] LABS: POTASSIUM 3.9 MEQ/L (3.5-5.1)
== END ==
LOC: PLAB 11:26
PROVIDERS: ATTEND Internal Medicine Interventional Cardiology
DX: I50.32 Chronic diastolic (congestive) heart failure (principal); R06.02 Shortness of breath; Z79.899 Other long term (current) drug therapy
CPT/HCPCS: 36415; 80048

== ENCOUNTER → 2017-04-27 | Outpatient (CLI) | payer MEDICARE ==
[2017-04-27 13:35] LABS: BICARBONATE 28.5 MEQ/L (21.0-32.0); POTASSIUM 4.3 MEQ/L (3.5-5.1)
== END ==
LOC: PLAB 10:44
PROVIDERS: ATTEND Internal Medicine Interventional Cardiology
DX: I50.32 Chronic diastolic (congestive) heart failure (principal); R06.02 Shortness of breath; Z79.899 Other long term (current) drug therapy
CPT/HCPCS: 36415; 80048

== ENCOUNTER → 2017-05-20 | Outpatient (CLI) | payer MEDICARE ==
[2017-05-20 13:48] LABS: BASOPHIL # 0.1 TH/MM3 (0-0.2); EOSINOPHIL # 0.4 TH/MM3 (0-0.4); EOSINOPHIL % 6.9 % (0.0-4.0); HEMATOCRIT 37.4 % (39.0-51.0); HEMOGLOBIN 12.6 GM/DL (13.0-17.0); LYMPH % 28.3 % (9.0-44.0); LYMPHOCYTE # 1.6 TH/MM3 (1.0-4.8); MEAN CELL VOLUME 90.5 FL (80.0-100.0); MEAN CORPUSCULAR HEMOGLOBIN 30.6 PG (27.0-34.0); MEAN CORPUSCULAR HGB CONC 33.8 % (32.0-36.0); MEAN PLATELET VOLUME 8.5 FL (7.0-11.0); MONO % 10.5 % (0.0-8.0); MONOCYTE # 0.6 TH/MM3 (0-0.9); NEUT % 53.3 % (16.0-70.0); PLATELET COUNT 216 TH/MM3 (150-450); RED BLOOD COUNT 4.14 MIL/MM3 (4.50-5.90); RED CELL DISTRIBUTION WIDTH 14.9 % (11.6-17.2); WHITE BLOOD COUNT 5.7 TH/MM3 (4.0-11.0)
[2017-05-20 13:52] LABS: ALBUMIN 3.3 GM/DL (3.4-5.0); ALT (GPT) 18 U/L (12-78); AST (GOT) 24 U/L (15-37); BLOOD UREA NITROGEN 21 MG/DL (7-18); CALCIUM 9.2 MG/DL (8.5-10.1); CHLORIDE 106 MEQ/L (98-107); CHOLESTEROL 166 MG/DL (120-200); CREATININE 0.98 MG/DL (0.60-1.30); GLOMERULAR FILTRATION RATE 74 ML/MIN (>89); SODIUM (NA) 141 MEQ/L (136-145); TRIGLYCERIDES 100 MG/DL (42-150)
[2017-05-20 13:55] LABS: BILIRUBIN, URINE NEG (NEG); BLOOD, URINE NEG (NEG); GLUCOSE,URINE NEG (NEG); HYALINE CAST, URINE 1 /lpf (RARE); KETONE, URINE NEG (NEG); NITRITE,URINE NEG (NEG); PH, URINE 6.5 (5.0-8.5); URINE COLOR LIGHT-YELLOW (YELLW/STRAW); URINE LEUKOCYTE ESTERASE NEG (NEG)
[2017-05-20 14:01] LABS: ALKALINE PHOSPHATASE 77 U/L (45-117); CHOLESTEROL/ HDL RATIO 3.75 RATIO; GLUCOSE,FASTING 140 MG/DL (74-99); HDL CHOLESTEROL 44.2 MG/DL (40.0-60.0); LDL CHOLESTEROL 102 MG/DL (0-99); TOTAL BILIRUBIN ADULT 0.4 MG/DL (0.2-1.0); TOTAL PROTEIN 7.5 GM/DL (6.4-8.2)
[2017-05-20 16:53] LABS: HEMOGLOBIN A1C 6.6 % (4.3-6.0)
== END ==
LOC: PLAB 10:01
PROVIDERS: ATTEND Internal Medicine
DX: E78.00 Pure hypercholesterolemia, unspecified (principal); E11.9 Type 2 diabetes mellitus without complications; I10 Essential (primary) hypertension; Z12.5 Encounter for screening for malignant neoplasm of prostate
CPT/HCPCS: 36415; 80053; 80061; 81001; 82043; 83036; 84443; 85025; G0103

== ENCOUNTER → 2017-06-15 | Outpatient (CLI) | payer MEDICARE ==
[2017-06-15 11:14] LABS: BICARBONATE 29.2 MEQ/L (21.0-32.0); CALCIUM 9.8 MG/DL (8.5-10.1); CREATININE 0.86 MG/DL (0.60-1.30)
== END ==
LOC: PLAB 09:13
PROVIDERS: ATTEND Internal Medicine Interventional Cardiology
DX: I71.4 Abdominal aortic aneurysm, without rupture (principal); I50.32 Chronic diastolic (congestive) heart failure; I11.0 Hypertensive heart disease with heart failure
CPT/HCPCS: 36415; 80048

== ENCOUNTER → 2017-06-24 | Outpatient (CLI) | payer MEDICARE ==
[2017-06-24 13:35] LABS: AUTOMATED NEUTROPHIL # 3.1 TH/MM3 (1.8-7.7); BASOPHIL % 0.6 % (0.0-2.0); EOSINOPHIL # 0.3 TH/MM3 (0-0.4); EOSINOPHIL % 5.3 % (0.0-4.0); HEMATOCRIT 39.9 % (39.0-51.0); HEMOGLOBIN 13.7 GM/DL (13.0-17.0); LYMPHOCYTE # 1.4 TH/MM3 (1.0-4.8); MEAN CELL VOLUME 88.8 FL (80.0-100.0); MEAN CORPUSCULAR HEMOGLOBIN 30.5 PG (27.0-34.0); MEAN CORPUSCULAR HGB CONC 34.3 % (32.0-36.0); MONO % 13.1 % (0.0-8.0); MONOCYTE # 0.7 TH/MM3 (0-0.9); PLATELET COUNT 220 TH/MM3 (150-450); RED BLOOD COUNT 4.49 MIL/MM3 (4.50-5.90); RED CELL DISTRIBUTION WIDTH 14.8 % (11.6-17.2); WHITE BLOOD COUNT 5.5 TH/MM3 (4.0-11.0)
[2017-06-24 13:43] LABS: ALT (GPT) 18 U/L (12-78); CHOLESTEROL 159 MG/DL (120-200)
[2017-06-24 13:45] LABS: ALBUMIN 3.6 GM/DL (3.4-5.0); AST (GOT) 17 U/L (15-37); BICARBONATE 26.3 MEQ/L (21.0-32.0); BLOOD UREA NITROGEN 22 MG/DL (7-18); CALCIUM 9.6 MG/DL (8.5-10.1); CHLORIDE 103 MEQ/L (98-107); GLOMERULAR FILTRATION RATE 72 ML/MIN (>89); GLUCOSE,FASTING 131 MG/DL (74-99); SODIUM (NA) 137 MEQ/L (136-145)
[2017-06-24 13:46] LABS: ALKALINE PHOSPHATASE 76 U/L (45-117); CHOLESTEROL/ HDL RATIO 3.54 RATIO; HDL CHOLESTEROL 44.9 MG/DL (40.0-60.0); LDL CHOLESTEROL 92 MG/DL (0-99); TOTAL BILIRUBIN ADULT 0.3 MG/DL (0.2-1.0); TOTAL PROTEIN 7.4 GM/DL (6.4-8.2); TRIGLYCERIDES 111 MG/DL (42-150)
== END ==
LOC: PLAB 10:03
PROVIDERS: ATTEND Internal Medicine
DX: J44.9 Chronic obstructive pulmonary disease, unspecified (principal); I48.91 Unspecified atrial fibrillation; I10 Essential (primary) hypertension; R53.83 Other fatigue; F34.1 Dysthymic disorder; E29.1 Testicular hypofunction; I50.9 Heart failure, unspecified
CPT/HCPCS: 36415; 80053; 80061; 85025

== ENCOUNTER → 2017-07-28 | Outpatient (CLI) | payer MEDICARE ==
[2017-07-28 10:37] LABS: AUTOMATED NEUTROPHIL # 3.7 TH/MM3 (1.8-7.7); BASOPHIL # 0.1 TH/MM3 (0-0.2); BASOPHIL % 0.9 % (0.0-2.0); EOSINOPHIL # 0.5 TH/MM3 (0-0.4); EOSINOPHIL % 6.7 % (0.0-4.0); HEMATOCRIT 39.9 % (39.0-51.0); HEMOGLOBIN 13.8 GM/DL (13.0-17.0); LYMPH % 31.4 % (9.0-44.0); LYMPHOCYTE # 2.4 TH/MM3 (1.0-4.8); MEAN CELL VOLUME 89.2 FL (80.0-100.0); MEAN CORPUSCULAR HEMOGLOBIN 30.9 PG (27.0-34.0); MEAN CORPUSCULAR HGB CONC 34.6 % (32.0-36.0); MEAN PLATELET VOLUME 8.6 FL (7.0-11.0); MONO % 12.4 % (0.0-8.0); MONOCYTE # 0.9 TH/MM3 (0-0.9); NEUT % 48.6 % (16.0-70.0); PLATELET COUNT 206 TH/MM3 (150-450); RED BLOOD COUNT 4.48 MIL/MM3 (4.50-5.90); RED CELL DISTRIBUTION WIDTH 14.8 % (11.6-17.2); WHITE BLOOD COUNT 7.5 TH/MM3 (4.0-11.0)
[2017-07-28 10:44] LABS: ALBUMIN 3.8 GM/DL (3.4-5.0); ALT (GPT) 26 U/L (12-78); AST (GOT) 24 U/L (15-37); BICARBONATE 29.1 MEQ/L (21.0-32.0); BLOOD UREA NITROGEN 16 MG/DL (7-18); CALCIUM 9.4 MG/DL (8.5-10.1); CHLORIDE 104 MEQ/L (98-107); CHOLESTEROL 155 MG/DL (120-200); CREATININE 0.98 MG/DL (0.60-1.30); GLOMERULAR FILTRATION RATE 74 ML/MIN (>89); GLUCOSE,FASTING 128 MG/DL (74-99); SODIUM (NA) 138 MEQ/L (136-145); TRIGLYCERIDES 129 MG/DL (42-150)
[2017-07-28 10:46] LABS: ALKALINE PHOSPHATASE 85 U/L (45-117); HDL CHOLESTEROL 48.4 MG/DL (40.0-60.0); LDL CHOLESTEROL 81 MG/DL (0-99); TOTAL BILIRUBIN ADULT 0.4 MG/DL (0.2-1.0); TOTAL PROTEIN 7.4 GM/DL (6.4-8.2)
[2017-07-28 16:13] LABS: HEMOGLOBIN A1C 6.8 % (4.3-6.0)
== END ==
LOC: PLAB 07:12
PROVIDERS: ATTEND Internal Medicine
DX: J44.9 Chronic obstructive pulmonary disease, unspecified (principal); I10 Essential (primary) hypertension; R53.83 Other fatigue; F34.1 Dysthymic disorder; E29.1 Testicular hypofunction; I50.9 Heart failure, unspecified; E11.9 Type 2 diabetes mellitus without complications
CPT/HCPCS: 36415; 80053; 80061; 83036; 85025

== ENCOUNTER → 2017-08-25 | Outpatient (CLI) | payer MEDICARE ==
[2017-08-25 13:40] LABS: ALBUMIN 3.6 GM/DL (3.4-5.0); AST (GOT) 25 U/L (15-37); BICARBONATE 27.1 MEQ/L (21.0-32.0); BLOOD UREA NITROGEN 20 MG/DL (7-18); CALCIUM 9.2 MG/DL (8.5-10.1); CHLORIDE 107 MEQ/L (98-107); GLOMERULAR FILTRATION RATE 72 ML/MIN (>89); GLUCOSE,FASTING 115 MG/DL (74-99); SODIUM (NA) 140 MEQ/L (136-145)
[2017-08-25 13:41] LABS: ALT (GPT) 22 U/L (12-78); AUTOMATED NEUTROPHIL # 3.7 TH/MM3 (1.8-7.7); BASOPHIL # 0.1 TH/MM3 (0-0.2); CHOLESTEROL 148 MG/DL (120-200); EOSINOPHIL # 0.4 TH/MM3 (0-0.4); EOSINOPHIL % 5.7 % (0.0-4.0); HEMATOCRIT 39.5 % (39.0-51.0); HEMOGLOBIN 13.2 GM/DL (13.0-17.0); LYMPH % 25.4 % (9.0-44.0); LYMPHOCYTE # 1.6 TH/MM3 (1.0-4.8); MEAN CELL VOLUME 88.5 FL (80.0-100.0); MEAN CORPUSCULAR HEMOGLOBIN 29.6 PG (27.0-34.0); MEAN CORPUSCULAR HGB CONC 33.5 % (32.0-36.0); MEAN PLATELET VOLUME 8.8 FL (7.0-11.0); MONO % 10.6 % (0.0-8.0); MONOCYTE # 0.7 TH/MM3 (0-0.9); NEUT % 57.3 % (16.0-70.0); PLATELET COUNT 219 TH/MM3 (150-450); RED BLOOD COUNT 4.47 MIL/MM3 (4.50-5.90); TRIGLYCERIDES 112 MG/DL (42-150); WHITE BLOOD COUNT 6.4 TH/MM3 (4.0-11.0)
[2017-08-25 13:43] LABS: ALKALINE PHOSPHATASE 80 U/L (45-117); CHOLESTEROL/ HDL RATIO 3.14 RATIO; LDL CHOLESTEROL 79 MG/DL (0-99); TOTAL BILIRUBIN ADULT 0.4 MG/DL (0.2-1.0); TOTAL PROTEIN 7.4 GM/DL (6.4-8.2)
== END ==
LOC: PLAB 09:08
PROVIDERS: ATTEND Internal Medicine
DX: J44.9 Chronic obstructive pulmonary disease, unspecified (principal); I48.91 Unspecified atrial fibrillation; I10 Essential (primary) hypertension; R53.83 Other fatigue; F34.1 Dysthymic disorder; E29.1 Testicular hypofunction; I50.9 Heart failure, unspecified
CPT/HCPCS: 36415; 80053; 80061; 85025